=== PATIENT | male | born 1930 | race Caucasian/White ===

== ENCOUNTER 2022-01-08 20:23 | Inpatient (IN) ==
[2022-01-08] MEDS ORDERED: dexAMETHasone**PF** 10 MG/ML VIAL IV ONE (21:39)
[2022-01-08] MEDS ORDERED: ALBUT/IPRATROP 3MG/0.5MG NEB 3 ML VIAL NEB STA (21:41)
[2022-01-08 21:44] LABS: Hematocrit (blood only) 36.1 % (40.1-51.0); Hemoglobin 12.2 g/dl (14.0-18.0); Mean Corpuscular Hemoglobin 28.8 pg (25.0-34.0); Mean Corpuscular Hgb Conc 33.8 g/dL (32.0-36.0); Mean Corpuscular Volume 85.1 fL (80.0-100.0); RDW Coefficient of Variation 13.7 % (11.5-14.5); RDW Standard Deviation 42.4 fL (36.4-46.3); Red Blood Count 4.24 M/uL (4.63-6.08)
[2022-01-08 21:51] LABS: Mean Platelet Volume 13.1 fL (9.4-12.4); Platelet Count 170 K/uL (130-400)
[2022-01-08 22:18] LABS: Basophils # (auto) 0.02 K/uL (0-0.2); Basophils % (auto) 0.2 %; Dohle Bodies 1+; Echinocytes 1+; Immature Granulocytes # (auto) 0.07 K/uL (0.00-0.02); Immature Granulocytes % (auto) 0.5 %; Lymphocytes # (auto) 0.25 K/uL (1.2-3.4); Lymphocytes % (auto) 1.9 %; Monocytes # (auto) 0.72 K/uL (0.24-0.82); Monocytes % (auto) 5.5 %; Neutrophils # (auto) 11.94 K/uL (1.4-6.5); Neutrophils % (auto) 91.9 %
[2022-01-08 22:22] LABS: Albumin Globulin Ratio 1.2 (0.9-2); Albumin Level 3.7 gm/dl (3.4-5.0); BUN Creatinine Ratio 17.3 (10-20); Bilirubin,Total 0.8 mg/dl (0.2-1.0); Calcium 8.8 mg/dl (8.5-10.1); Est GFR (African American) 68.6 ml/min; Est GFR (Non-African American) 59.2 ml/min; Globulin 3.1 gm/dl (2.5-4.0); Magnesium 1.8 mg/dl (1.7-2.4); Potassium 4.4 mmol/L (3.5-5.1); Total Protein 6.8 gm/dl (6.0-8.3); Troponin I High Sensitivity 163.1 pg/ml (0-20)
[2022-01-08] MEDS ORDERED: FUROSEMIDE INJ 20 MG/2 ML VIAL IV ONE (22:59)
[2022-01-08] MEDS ORDERED: METOPROLOL TARTRATE 1 MG/ML VIAL IV STA (22:59)
[2022-01-08] MEDS ORDERED: DOXYCYCLINE HYCLATE 100 MG in DEXTROSE 5% 100 ML IV STA (23:08)
[2022-01-08 23:53] LABS: Partial Thromboplastin Time 27.5 Seconds (21.0-31.0)
[2022-01-08] MEDS: MAGNESIUM SULFATE / D5W 1 GM/100 ML BAG IV SCH (23:57)
[2022-01-09 00:07] LABS: Reticulocytes # 0.04 10^6/uL (0.02-0.10)
[2022-01-09] MEDS ORDERED: REMDESIVIR 200 MG in SODIUM CHLORIDE 0.9% 210 ML IV STA (00:22)
[2022-01-09] MEDS ORDERED: GLUCOSE 10 TAB/TUBE PO PRN (00:23)
[2022-01-09] MEDS ORDERED: CARBOHYDRATES FOR HYPOGLYCEMIA PO PRN (00:23)
[2022-01-09] MEDS ORDERED: DEXTROSE 50% 50 ML SYRINGE IV PRN (00:23)
[2022-01-09] MEDS ORDERED: LANTUS PER UNIT CHARGE SQ STA ×2 (00:23→03:00)
[2022-01-09] MEDS ORDERED: GLUCOSE 40% GEL 15 GM TUBE PO PRN (00:23)
[2022-01-09] MEDS ORDERED: GLUCAGON FOR INJ 1 MG VIAL SQ PRN (00:23)
--- NOTE | 2022-01-09 00:23 | History & Physical Report ---
Date of Service January 09, 2022 Assessment & Plan (1) Acute respiratory failure with hypoxia: Plan: Underlying pulmonary hypertension Multifactorial : Severe COVID-19 pneumonia, possible sepsis from superimposed bacterial infection with abnormal procalcitonin CHF, hx systolic dysfunction status post biventricular ICD Troponin elevation similar to above hx CAD status post angioplasty chronic LBBB A. fib status post PPM on Eliquis mild mitral regurgitation Hypertension, elevated secondary illness DM2 on oral medications, suboptimal control as of recent hemoglobin A1c of 9.1 last October 2021 prostate cancer status post surgery New onset anemia, patient denies overt bleeding symptoms past tobacco abuse PCU Supplemental O2 Baseline ABG BiPAP for now CS, Doxycycline Decadron and Remdesivir Pulmonary consult if without improvement Diuretic Rx Strict I/Os, daily weights, CHF education Follow troponin, TTE if with progression Basal bolus insulin, ISS BG goal 1 10-1 40, update hemoglobin A1c Anemia work-up, transfuse PRBC if hemoglobin less than 8 and or for symptomatic anemia DVT phylaxis. Eliquis Full code Total critical care time was 45 minutes. Attempted to contact patient's son (Mr. Kristofer Raymundo, contact #[phone]) over the phone to provide update on patient's condition and to discuss plan of care. No answer. History of Present Illness Chief Complaint: Shortness of breath, weakness Primary Care Provider: Denton Sears MD History obtained from patient and records. Medical history significant for chronic systolic heart failure (EF 30 to 34%, TTE 2020 status post ICD), CAD status post angioplasty, chronic LBBB, A. fib status post PPM on Eliquis, mild mitral regurgitation, pulmonary hypertension, hypertension, DM2 on oral medications, prostate cancer status post surgery, peripheral neuropathy, past tobacco abuse. Last week, patient noted fever chills, nasal drainage. Cold symptoms with congestion. Junky cough symptoms. No chest pain. Poor appetite. Patient completed COVID-19 vaccination. Patient seen at PCPs office 4 days ago. Chest x-ray showed right atelectasis. COVID-19 swab was positive. Patient prescribed Z-Charles. Worsening shortness of breath mostly on exertion and weakness at home. O2 sats 89 on room air upon EMS arrival. Patient denies chest pain or unusual fluid retention/leg swelling. Patient brought to the ER. Decadron and neb treatment administered at the ER. BiPAP later initiated. Medical History as above Surgical History : ICD, PPM Family History : COPD Personal/Social history : Past tobacco abuse, no EtOH intake, Allergies Allergy/AdvReac Type Severity Reaction Status Date / Time benoxinate Allergy Unknown listed in Verified 01/08/22 22:23 [facility] record simvastatin Allergy Unknown listed in Verified 01/08/22 22:23 [facility] record Home Medications Medication Instructions Recorded Confirmed Type apixaban 5 mg tablet (Eliquis) 5 mg PO BID 08/08/21 01/08/22 History benazepril 40 mg tablet 40 mg PO QAM 08/08/21 01/08/22 History calcium carbonate 500 mg calcium 500 mg PO QAM 08/08/21 01/08/22 History (1,250 mg) tablet clopidogrel 75 mg tablet (Plavix) 75 mg PO QAM 08/08/21 01/08/22 History diphenhydramine 25 1 tab PO TID PRN Itching 08/08/21 01/08/22 History mg-acetaminophen 500 mg tablet (Tylenol PM Extra Strength) dofetilide 500 mcg capsule 500 mcg PO Q12H 08/08/21 01/08/22 History (Tikosyn) fluticasone furoate 100 2 inh inhalation QAM 08/08/21 01/08/22 History mcg-vilanterol 25 mcg/dose inhalation powder (Breo Ellipta) furosemide 40 mg tablet 40 mg PO BID 08/08/21 01/08/22 History glimepiride 4 mg tablet 4 mg PO BID 08/08/21 01/08/22 History albuterol sulfate 90 mcg/actuation 2 puff inhalation Q6 PRN Shortness 01/08/22 01/08/22 History aerosol inhaler Of Breath Or Wheezing azithromycin 250 mg tablet 250 mg PO UD 01/08/22 01/08/22 History gabapentin 300 mg capsule 300 mg PO BID 01/08/22 01/08/22 History gabapentin 300 mg capsule 600 mg PO HS 01/08/22 01/08/22 History [id number] C-Mn 500 1 cap PO BID 01/08/22 01/08/22 History mg-400 mg capsule magnesium oxide 400 mg PO DAILY 01/08/22 01/08/22 History metformin 500 mg tablet,extended 1,000 mg PO BID 01/08/22 01/08/22 History release 24 hr metoprolol succinate 25 mg 12.5 mg PO AMHS 01/08/22 01/08/22 History tablet,extended release 24 hr multivitamin with minerals 1 tab PO DAILY 01/08/22 01/08/22 History (Multiple Vitamin-Minerals tablet) nitroglycerin 0.4 mg sublingual 0.4 mg sublingual UD PRN Chest Pain 01/08/22 01/08/22 History tablet vitamins A,C,F-pokf-pysoej 14,320 1 cap PO DAILY 01/08/22 01/08/22 History unit-226 mg-200 unit capsule vitamins B1 2.5 mg-B2 2.5 1 tab PO DAILY 01/08/22 01/08/22 History mg-niacin 5 mg-B12 100 mcg-protease tablet (B-Complex With B-12) Past Med/Surg History Medical History Acid reflux On occasion Asthma Does get frequent COVARRUBIAS Atrial fibrillation Dx Jan 2019 > Tikosyn/Eliquis/Plavix > no cardioversions > follows with Dr. Henson > EF is 30-35% per pt report CAD (coronary artery disease) S/p PCI to LAD, ramus intermedius, and RCA (2006) S/p PCI 2009 (unknown vessel) S/p old balloon angioplasty, unknown vessel (Jan 2019) Diabetes mellitus, type 2 Diastolic dysfunction Severe Heart attack HTN (hypertension) Hyperlipidemia Ischemic cardiomyopathy EF 30-34% Kidney stones Hx of LBBB (left bundle branch block) Chronic Neuropathy Hands and feet Prostate cancer Dx'ed several yrs ago > s/p prostatectomy, no radiation Pulmonary HTN Moderate per records Urinary incontinence S/p AMS 800 Urinary Control System implantation in 2008 Surgical History History of appendectomy History of cardiac cath x4 stents > approx 8-10 yrs ago per pt History of cataract surgery bilat History of colonoscopy History of heart artery stent x4 > approx 8-10 yrs ago per pt History of lithotripsy History of partial nephrectomy Per records 1985 History of prostatectomy History of tonsillectomy History of tooth extraction Hx of inguinal hernia repair x2 Status post implantation of artificial urinary sphincter Family History Mother Diabetes Brother Diabetes Social History Smoking Status: Former smoker Second Hand Exposure: No; Hx Alcohol Use: No Hx Substance Use: No Preferred Language: Kyrgyz Communication Ability: Effective Vegetable I Farmworker Required: No Beliefs That Will Affect Care: None Current Living Situation: Alone Feels Safe at Home: Yes Safety Concerns: Feels Safe At This Time Assistive Devices: Glasses Review of Systems Review of Systems: As per HPI, all other systems reviewed and negative Physical Exam Physical Exam: GENERAL: Slightly uncomfortable, minimal respiratory distress SKIN: Pallor, warm HEENT: Pale palpebral conjunctivae, no ptosis, dry buccal mucosa, BiPAP in place NECK : Supple, no tenderness CHEST : Decreased breath sounds, occasional expiratory wheezes no tenderness HEART : RRR, no obvious murmurs ABDOMEN: Some distention, nontender EXTREMITIES : Minimal LE swelling, no LE tenderness, no other conspicuous deformities noted NEUROLOGIC : Coherent, no facial asymmetry, mild hearing impairment, gait and stance not assessed Results & Data Results & Data ([facility] [place]) Vital Signs (Past 12 Hours) Vital Signs Temp Pulse Pulse Resp BP BP Pulse Ox 01/08/22 21:15 50 L 23 94 01/08/22 22:00 113 H 24 94 01/08/22 20:35 93 01/08/22 20:34 113 H 28 H 159/114 H 93 01/08/22 20:27 37 C 113 H 28 H 159/114 H 85 L 01/08/22 20:27 O2 Del Method O2 Flow Rate FiO2 01/08/22 21:15 40 01/08/22 22:00 BiPAP 01/08/22 20:35 Nasal Cannula 4 01/08/22 20:34 Nasal Cannula 4 01/08/22 20:27 Room Air 01/08/22 20:27 Nasal Cannula Laboratory Results Laboratory Results WBC 13.00 K/ul (4.8-10.8) H 01/08/22 20:40 RBC 4.24 M/uL (4.63-6.08) L 01/08/22 20:40 Hgb 12.2 g/dl (14.0-18.0) L 01/08/22 20:40 Hct 36.1 % (40.1-51.0) L 01/08/22 20:40 MCV 85.1 fL (80.0-100.0) 01/08/22 20:40 MCH 28.8 pg (25.0-34.0) 01/08/22 20:40 MCHC 33.8 g/dL (32.0-36.0) 01/08/22 20:40 RDW Std Deviation 42.4 fL (36.4-46.3) 01/08/22 20:40 RDW Coeff of Sarika 13.7 % (11.5-14.5) 01/08/22 20:40 Plt Count 170 K/uL (130-400) 01/08/22 20:40 MPV 13.1 fL (9.4-12.4) H 01/08/22 20:40 Immature Gran % (Auto) 0.5 % 01/08/22 20:40 Neut % (Auto) 91.9 % 01/08/22 20:40 Lymph % (Auto) 1.9 % 01/08/22 20:40 Coles % (Auto) 5.5 % 01/08/22 20:40 Eos % (Auto) 0.0 % 01/08/22 20:40 Baso % (Auto) 0.2 % 01/08/22 20:40 Reticulocyte % (Auto) 1.0 % (0.5-2.0) 01/08/22 23:50 Neut # (Auto) 11.94 K/uL (1.4-6.5) H 01/08/22 20:40 Lymph # (Auto) 0.25 K/uL (1.2-3.4) L 01/08/22 20:40 Coles # (Auto) 0.72 K/uL (0.24-0.82) 01/08/22 20:40 Eos # (Auto) 0.00 K/uL (0-0.50) 01/08/22 20:40 Baso # (Auto) 0.02 K/uL (0-0.2) 01/08/22 20:40 Reticulocyte # 0.04 10^6/uL (0.02-0.10) 01/08/22 23:50 Immature Gran # (Auto) 0.07 K/uL (0.00-0.02) H 01/08/22 20:40 Dohle Bodies 1+ 01/08/22 20:40 Echinocytes 1+ 01/08/22 20:40 APTT 27.5 Seconds (21.0-31.0) 01/08/22 20:40 PTT Ratio 1.0 01/08/22 20:40 Sodium 128 mmol/L (136-145) L 01/08/22 20:40 Potassium 4.4 mmol/L (3.5-5.1) 01/08/22 20:40 Chloride 93 mmol/L (98-107) L 01/08/22 20:40 Carbon Dioxide 23 mmol/L (21-32) 01/08/22 20:40 Anion Gap 12 (3-11) H 01/08/22 20:40 BUN 19 mg/dl (6-23) 01/08/22 20:40 Creatinine 1.10 mg/dl (0.6-1.4) 01/08/22 20:40 Est Cr Clr Drug Dosing 44.0 ml/min 01/08/22 20:40 Est GFR ( Amer) 68.6 ml/min 01/08/22 20:40 Est GFR (Non-Af Amer) 59.2 ml/min 01/08/22 20:40 BUN/Creatinine Ratio 17.3 (10-20) 01/08/22 20:40 Glucose 336 mg/dl (70-99(Fasting)) H* 01/08/22 20:40 Calcium 8.8 mg/dl (8.5-10.1) 01/08/22 20:40 Phosphorus 2.0 mg/dl (2.5-4.9) L 01/08/22 20:40 Magnesium 1.8 mg/dl (1.7-2.4) 01/08/22 20:40 Total Bilirubin 0.8 mg/dl (0.2-1.0) 01/08/22 20:40 AST 43 U/L (13-39) H 01/08/22 20:40 ALT 34 U/L (7-52) 01/08/22 20:40 Alkaline Phosphatase 71 U/L (34-104) 01/08/22 20:40 Troponin I High Sens 163.1 pg/ml (0-20) H* 01/08/22 20:40 B-Natriuretic Peptide 1609 pg/ml (0-100) H 01/08/22 20:40 Total Protein 6.8 gm/dl (6.0-8.3) 01/08/22 20:40 Albumin 3.7 gm/dl (3.4-5.0) 01/08/22 20:40 Globulin 3.1 gm/dl (2.5-4.0) 01/08/22 20:40 Albumin/Globulin Ratio 1.2 (0.9-2) 01/08/22 20:40 Lipase 18 U/L (11-82) 01/08/22 20:40 Procalcitonin 9.38 ng/ml (0-0.5) H 01/08/22 20:40 SARS-CoV-2, RNA, NAAT POSITIVE (NEGATIVE) A* 01/08/22 21:30 Diagnostic Findings Chest x-ray as per my interpretation elevated right hemidiaphragm, cardiomegaly, minimal congestion EKG as per my interpretation : Rate 105, sinus tachycardia, RAD, anteroseptal infarct, T wave abnormalities inferior leads
[2022-01-09] MEDS ORDERED: POTASSIUM PHOS 3 MMOL/1 ML INFUSION IV STA (00:25)
[2022-01-09 00:41] LABS: iSTAT Arterial Blood Gas HCO3 22 meg/L (19-24); iSTAT Arterial Blood Gas pCO2 37 mmHg (35-46); iSTAT Arterial Blood Gas pH 7.39 (7.35-7.45); iSTAT Arterial Blood Gas pO2 113 mmHg (80-95); iSTAT Carbon Dioxide 23 mmol/L (24-31)
[2022-01-09 00:51] LABS: Ferritin 300.4 ng/ml (8-388); Iron < 10 mcg/dl (35-175); Transferrin 193 mg/dl (200-360); Troponin I High Sensitivity 427.3 pg/ml (0-20)
[2022-01-09] MEDS ORDERED: POTASSIUM PHOSPHATE 30 MMOL in SODIUM CHLORIDE 0.9% 500 ML IV ONE (01:00)
[2022-01-09 01:22] LABS: Base Excess ABG -1.4 mEq/L (-9-1.8); HCO3 ABG 23 mmol/L (19-24); Oxygen Saturation ABG 99.2 % (90-95); PCO2 ABG 36 mmHg (35-46); PO2 ABG 93 mmHg (80-95); pH ABG 7.41 (7.35-7.45)
[2022-01-09 01:24] LABS: Allen Test Pos (Pos)
[2022-01-09 01:31] LABS: Vitamin B12 > 1500 pg/ml (180-914)
--- NOTE | 2022-01-09 01:54 | Emergency Department Note ---
Impression & Plan Acute respiratory failure with hypoxia, Pneumonia due to COVID-19 virus, Elevated troponin ED Provider Note NAME: MARCO LA AGE: 89 SEX: M ARRIVES VIA: Ambulance INFORMANT: Patient, ED PROVIDER(S): Denton Smallwood MD CHIEF COMPLAINT: Covid-19, Shortness of breath. PLAN: Disposition: Admit MEDICAL DECISION MAKING: The patient is a pleasant 89-year-old gentleman with a past medical history of CAD, systolic and diastolic heart failure, left bundle branch block, paroxysmal atrial fibrillation on Eliquis who presents to the emergency department via EMS and then accompanied by his son for evaluation of worsening shortness of breath over the past week with dry cough that worsened and was diagnosed with COVID-19 with test performed on Saturday and was informed today. The patient is not on oxygen at home. He does not feel as he has retained fluid necessarily. He reports feverishness. He denies nausea or vomiting or diarrhea. He is vaccinat ed for COVID-19. On arrival the patient is uncomfortable and in moderate respiratory distress with O2 saturation 85% on room air and tachypnea with labored breathing in the upper 20s-30s. Heart rate in the 110s and blood pressure 150s/110s. He has diminished breath sounds at the bases with intermittent wheeze and rhonchi. Labored breathing. 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 EKG with left bundle branch block in the setting of history of same, no sgarb saima criteria. Chest x-ray with bilateral airspace opacities right greater than left per my preliminary review. WBC 13K nonspecific. H/H 12.2/36.1 without recent values for comparison. Platelets within normal limits. Chemistry without metabolic acidosis. Sodium 128 but corrects to 132-134 with glucose of 336. AST 43, nonspecific. LFTs otherwise unremarkable. Initial high-sensitivity troponin 163, nonspecific in the setting of the patient's respiratory failure. BNP 1600 without recent va lues for comparison and in setting of the patient's known systolic heart failure. Lipase within normal limits. COVID-19 RNA, THIAGO test was positive. Given the patient's acute hypoxic respiratory failure in the setting of COVID-19 pneumonia we will proceed with admission. Patient and son at the bedside agree with this plan. Case was discussed with Dr. [facility] who will evaluate the patient for admission. Procalcitonin elevated. Further treatment per admitting team. Triage Nursing notes reviewed and agree them. Prior medical records reviewed Vital Signs: reviewed and remarkable for tachycardia, hypoxia, hypertension. Differential diagnosis: Reactive airway disease, pneumonia, pneumothorax, COPD, CHF, infections, cardiac ischemia, pulmonary embolism, musculoskeletal, gastrointestinal, as well as other pathologies. ER treatment provided: See below. Diagnostics interpreted by me: ECG: Sinus tachycardia, 105 bpm, no ectopy, T wave abnormality, LBBB, no sgarbossa criteria, QTC 452, QRS 124. Cardiac Monitoring: An order for continuous cardiac monitoring was placed and demonstrated Sinus tachycardia, 105 bpm, no ectopy. Laboratory studies: See below Imaging studies: See below Consultation(s): Case was discussed with Dr. [facility] who will evaluate the patient for admission. HPI: The patient is a pleasant 89-year-old gentleman with a past medical history of CAD, systolic and diastolic heart failure, left bundle branch block, paroxysmal atrial fibrillation on Eliquis who presents to the emergency department via EMS and then accompanied by his son for evaluation of worsening shortness of breath over the past week with dry cough that worsened and was diagnosed with COVID-19 with test performed on Saturday and was informed today. The patient is not on oxygen at home. He does not feel as he has retained fluid necessarily. He reports feverishness. He denies nausea or vomiting or diarrhea. He is vaccinated for COVID-19. ROS: See above HPI for pertinent positives & negatives. A total of 10 systems reviewed and were otherwise negative. VITALS:See Below PHYSICAL EXAMINATION: GENERAL: Awake, alert, ill-appearing, in moderate respiratory distress HENT: Normocephalic, atraumatic. Oropharynx unremarkable. EYES: Normal conjunctiva. Sclera non-icteric. NECK: Supple. No nuchal rigidity. FROM. No JVD. RESPIRATORY: Diminished breath sounds at the bases with intermittent wheeze and rhonchi. Increased WOB. CARDIAC: Regular rate, normal rhythm. Extremities warm and well perfused. Pulses equal. ABDOMEN: Soft, non-distended. No tenderness to palpation. No rebound or guarding. No masses. RECTAL: Deferred. MUSCULOSKELETAL: Chest examination reveals no tenderness. The back is s ymmetrical on inspection without obvious abnormality. There is no CVA tenderness to palpation. No joint edema. LOWER EXTREMITIES: Calves are equal size bilaterally and non-tender. Mild BLE edema. No discoloration. NEURO: Normal sensorium. No sensory or motor deficits noted. SKIN: No rash or jaundice noted. ED COURSE: Critical Care: I have personally spent greater than 75 minutes of critical care time in the direct management of this patient. This includes bedside care, interpretation of diagnostic studies, and testing, discussion with consultants, patient, and family members, and other required patient management activities. This 75 minutes is in excess of all separately billable procedures. Denton Smallwood MD Past Med/Surg History Medical History Acid reflux On occasion Asthma Does get frequent COVARRUBIAS Atrial fibrillation Dx Jan 2019 > Tikosyn/Eliquis/Plavix > no cardioversions > follows with Dr. Henson > EF is 30-35% per pt report CAD (coronary artery disease) S/p PCI to LAD, ramus intermedius, and RCA (2006) S/p PCI 2009 (unknown vessel) S/p old balloon angioplasty, unknown vessel (Jan 2019) Diabetes mellitus, type 2 Diastolic dysfunction Severe Heart attack HTN (hypertension) Hyperlipidemia Ischemic cardiomyopathy EF 30-34% Kidney stones Hx of LBBB (left bundle branch block) Chronic Neuropathy Hands and feet Prostate cancer Dx'ed several yrs ago > s/p prostatectomy, no radiation Pulmonary HTN Moderate per records Urinary incontinence S/p AMS 800 Urinary Control System implantation in 2008 Surgical History History of appendectomy History of cardiac cath x4 stents > approx 8-10 yrs ago per pt History of cataract surgery bilat History of colonoscopy History of heart artery stent x4 > approx 8-10 yrs ago per pt History of lithotripsy History of partial nephrectomy Per records 1985 History of prostatectomy History of tonsillectomy History of tooth extraction Hx of inguinal hernia repair x2 Status post implantation of artificial urinary sphincter Family History Mother Diabetes Brother Diabetes Social History Smoking Status: Never smoker Second Hand Exposure: No; Hx Alcohol Use: No Hx Substance Use: No Preferred Language: Moroccan Communication Ability: Effective Wastewater Analyst Required: No Beliefs That Will Affect Care: None Current Living Situation: Alone Feels Safe at Home: Yes Assistive Devices: Glasses Allergies Allergies Allergy/AdvReac Type Severity Reaction Status Date / Time benoxinate Allergy Unknown listed in Verified 01/08/22 22:23 [facility] simvastatin Allergy Unknown listed in Verified 01/08/22 22:23 [facility] Home Meds Home Medications Medication Instructions Recorded Confirmed apixaban 5 mg tablet (Eliquis) 5 mg PO BID 08/08/21 01/08/22 benazepril 40 mg tablet 40 mg PO QAM 08/08/21 01/08/22 calcium carbonate 500 mg calcium 500 mg PO QAM 08/08/21 01/08/22 (1,250 mg) tablet clopidogrel 75 mg tablet (Plavix) 75 mg PO QAM 08/08/21 01/08/22 diphenhydramine 25 1 tab PO TID PRN Itching 08/08/21 01/08/22 mg-acetaminophen 500 mg tablet (Tylenol PM Extra Strength) dofetilide 500 mcg capsule 500 mcg PO Q12H 08/08/21 01/08/22 (Tikosyn) fluticasone furoate 100 2 inh inhalation QAM 08/08/21 01/08/22 mcg-vilanterol 25 mcg/dose inhalation powder (Breo Ellipta) furosemide 40 mg tablet 40 mg PO BID 08/08/21 01/08/22 glimepiride 4 mg tablet 4 mg PO BID 08/08/21 01/08/22 albuterol sulfate 90 mcg/actuation 2 puff inhalation Q6 PRN Shortness 01/08/22 01/08/22 aerosol inhaler Of Breath Or Wheezing azithromycin 250 mg tablet 250 mg PO UD 01/08/22 01/08/22 gabapentin 300 mg capsule 300 mg PO BID 01/08/22 01/08/22 gabapentin 300 mg capsule 600 mg PO HS 01/08/22 01/08/22 imizoocqejt-vlsjtxotj-fmf C-Mn 500 1 cap PO BID 01/08/22 01/08/22 mg-400 mg capsule magnesium oxide 400 mg PO DAILY 01/08/22 01/08/22 metformin 500 mg tablet,extended 1,000 mg PO BID 01/08/22 01/08/22 release 24 hr metoprolol succinate 25 mg 12.5 mg PO AMHS 01/08/22 01/08/22 tablet,extended release 24 hr multivitamin with minerals 1 tab PO DAILY 01/08/22 01/08/22 (Multiple Vitamin-Minerals tablet) nitroglycerin 0.4 mg sublingual 0.4 mg sublingual UD PRN Chest Pain 01/08/22 01/08/22 tablet vitamins A,C,U-ulnr-ahpomd 14,320 1 cap PO DAILY 01/08/22 01/08/22 unit-226 mg-200 unit capsule vitamins B1 2.5 mg-B2 2.5 1 tab PO DAILY 01/08/22 01/08/22 mg-niacin 5 mg-B12 100 mcg-protease tablet (B-Complex With B-12) Results & Data (ED) Vital Signs Vital Signs - 24 hr 01/08/22 20:27 01/08/22 20:27 01/08/22 20:34 Temperature 37 C Temperature Source Oral Pulse Rate 113 H Pulse Rate [Finger] 113 H Pulse Rhythm Respiratory Rate 28 H 28 H Respiratory Effort / Characteristics Non-Labored Short of Breath Non-Labored Spontaneous Short of Breath Non-Labored Spontaneous Short of Breath Respiratory Depth Deep Respiratory Pattern Regular Blood Pressure 159/114 H Blood Pressure [Right Arm] 159/114 H Blood Pressure Mean 129 Blood Pressure Mean [Right Arm] 129 Blood Pressure Position Sitting Blood Pressure Position [Right Arm] Sitting Pulse Oximetry 85 L 93 Oxygen Delivery Method Nasal Cannula Room Air Nasal Cannula Oxygen Flow Rate 4 Fraction of Inspired Oxygen Sepsis Recent Fever Within 48 Hours No Sepsis New/Unexplained Change in Mental Status No Sepsis Action Taken by Nursing No Action Required 01/08/22 20:35 01/08/22 22:00 01/08/22 21:15 Temperature Temperature Source Pulse Rate 113 H 50 L Pulse Rate [Finger] Pulse Rhythm Regular Respiratory Rate 24 23 Respiratory Effort / Characteristics Spontaneous Accessory Muscle Use Respiratory Depth Respiratory Pattern Tachypnea Blood Pressure Blood Pressure [Right Arm] Blood Pressure Mean Blood Pressure Mean [Right Arm] Blood Pressure Position Blood Pressure Position [Right Arm] Pulse Oximetry 93 94 94 Oxygen Delivery Method Nasal Cannula BiPAP Oxygen Flow Rate 4 Fraction of Inspired Oxygen 40 Sepsis Recent Fever Within 48 Hours Sepsis New/Unexplained Change in Mental Status Sepsis Action Taken by Nursing Laboratory Data Attestation: I reviewed the patient's lab results. Result diagrams: 01/08/22 20:40 01/08/22 20:40 Lab Results 01/08/22 01/08/22 01/08/22 Range/Units 20:40 20:40 20:40 WBC 13.00 H (4.8-10.8) K/ul RBC 4.24 L (4.63-6.08) M/uL Hgb 12.2 L (14.0-18.0) g/dl Hct 36.1 L (40.1-51.0) % MCV 85.1 (80.0-100.0) fL MCH 28.8 (25.0-34.0) pg MCHC 33.8 (32.0-36.0) g/dL RDW Std Deviation 42.4 (36.4-46.3) fL RDW Coeff of Sarika 13.7 (11.5-14.5) % Plt Count 170 (130-400) K/uL MPV 13.1 H (9.4-12.4) fL Immature Gran % (Auto) 0.5 % Neut % (Auto) 91.9 % Lymph % (Auto) 1.9 % [place] % (Auto) 5.5 % Eos % (Auto) 0.0 % Baso % (Auto) 0.2 % Reticulocyte % (Auto) (0.5-2.0) % Neut # (Auto) 11.94 H (1.4-6.5) K/uL Lymph # (Auto) 0.25 L (1.2-3.4) K/uL [place] # (Auto) 0.72 (0.24-0.82) K/uL Eos # (Auto) 0.00 (0-0.50) K/uL Baso # (Auto) 0.02 (0-0.2) K/uL Reticulocyte # (0.02-0.10) 10^6/uL Immature Gran # (Auto) 0.07 H (0.00-0.02) K/uL Dohle Bodies 1+ Echinocytes 1+ APTT (21.0-31.0) Seconds PTT Ratio POC pH (7.35-7.45) POC pCO2 (35-46) mmHg POC pO2 (80-95) mmHg POC HCO3 (19-24) kim/L POC Total CO2 (24-31) mmol/L POC Base Excess (-9-1.8) kim/L POC ABG O2 Sat (90-95) % Sodium 128 L (136-145) mmol/L Potassium 4.4 (3.5-5.1) mmol/L Chloride 93 L (98-107) mmol/L Carbon Dioxide 23 (21-32) mmol/L Anion Gap 12 H (3-11) BUN 19 (6-23) mg/dl Creatinine 1.10 (0.6-1.4) mg/dl Est Cr Clr Drug Dosing 44.0 ml/min Est GFR ( Amer) 68.6 ml/min Est GFR (Non-Af Amer) 59.2 ml/min BUN/Creatinine Ratio 17.3 (10-20) Glucose 336 H* (70-99(Fasting)) mg/dl Osmolality (280-300) mOsm/kg Lactate (0.4-2.0) mmol/L Calcium 8.8 (8.5-10.1) mg/dl Phosphorus 2.0 L (2.5-4.9) mg/dl Magnesium 1.8 (1.7-2.4) mg/dl Iron (35-175) mcg/dl Transferrin (200-360) mg/dl Ferritin (8-388) ng/ml Total Bilirubin 0.8 (0.2-1.0) mg/dl AST 43 H (13-39) U/L ALT 34 (7-52) U/L Alkaline Phosphatase 71 (34-104) U/L Troponin I High Sens 163.1 H* (0-20) pg/ml B-Natriuretic Peptide 1609 H (0-100) pg/ml Total Protein 6.8 (6.0-8.3) gm/dl Albumin 3.7 (3.4-5.0) gm/dl Globulin 3.1 (2.5-4.0) gm/dl Albumin/Globulin Ratio 1.2 (0.9-2) Lipase 18 (11-82) U/L Vitamin B12 (180-914) pg/ml Folate (>5.38) ng/ml Procalcitonin (0-0.5) ng/ml TSH (0.300-4.500) uIu/ml SARS-CoV-2, RNA, NAAT (NEGATIVE) Blood Type Antibody Screen 01/08/22 01/08/22 01/08/22 Range/Units 20:40 20:40 20:40 WBC (4.8-10.8) K/ul RBC (4.63-6.08) M/uL Hgb (14.0-18.0) g/dl Hct (40.1-51.0) % MCV (80.0-100.0) fL MCH (25.0-34.0) pg MCHC (32.0-36.0) g/dL RDW Std Deviation (36.4-46.3) fL RDW Coeff of Sarika (11.5-14.5) % Plt Count (130-400) K/uL MPV (9.4-12.4) fL Immature Gran % (Auto) % Neut % (Auto) % Lymph % (Auto) % [place] % (Auto) % Eos % (Auto) % Baso % (Auto) % Reticulocyte % (Auto) (0.5-2.0) % Neut # (Auto) (1.4-6.5) K/uL Lymph # (Auto) (1.2-3.4) K/uL [place] # (Auto) (0.24-0.82) K/uL Eos # (Auto) (0-0.50) K/uL Baso # (Auto) (0-0.2) K/uL Reticulocyte # (0.02-0.10) 10^6/uL Immature Gran # (Auto) (0.00-0.02) K/uL Dohle Bodies Echinocytes APTT (21.0-31.0) Seconds PTT Ratio POC pH (7.35-7.45) POC pCO2 (35-46) mmHg POC pO2 (80-95) mmHg POC HCO3 (19-24) kim/L POC Total CO2 (24-31) mmol/L POC Base Excess (-9-1.8) kim/L POC ABG O2 Sat (90-95) % Sodium (136-145) mmol/L Potassium (3.5-5.1) mmol/L Chloride (98-107) mmol/L Carbon Dioxide (21-32) mmol/L Anion Gap (3-11) BUN (6-23) mg/dl Creatinine (0.6-1.4) mg/dl Est Cr Clr Drug Dosing ml/min Est GFR ( Amer) ml/min Est GFR (Non-Af Amer) ml/min BUN/Creatinine Ratio (10-20) Glucose (70-99(Fasting)) mg/dl Osmolality 286 (280-300) mOsm/kg Lactate (0.4-2.0) mmol/L Calcium (8.5-10.1) mg/dl Phosphorus (2.5-4.9) mg/dl Magnesium (1.7-2.4) mg/dl Iron (35-175) mcg/dl Transferrin (200-360) mg/dl Ferritin (8-388) ng/ml Total Bilirubin (0.2-1.0) mg/dl AST (13-39) U/L ALT (7-52) U/L Alkaline Phosphatase (34-104) U/L Troponin I High Sens (0-20) pg/ml B-Natriuretic Peptide (0-100) pg/ml Total Protein (6.0-8.3) gm/dl Albumin (3.4-5.0) gm/dl Globulin (2.5-4.0) gm/dl Albumin/Globulin Ratio (0.9-2) Lipase (11-82) U/L Vitamin B12 (180-914) pg/ml Folate (>5.38) ng/ml Procalcitonin 9.38 H (0-0.5) ng/ml TSH 1.450 (0.300-4.500) uIu/ml SARS-CoV-2, RNA, NAAT (NEGATIVE) Blood Type Antibody Screen 01/08/22 01/08/22 01/08/22 Range/Units 20:40 20:40 21:30 WBC (4.8-10.8) K/ul RBC (4.63-6.08) M/uL Hgb (14.0-18.0) g/dl Hct (40.1-51.0) % MCV (80.0-100.0) fL MCH (25.0-34.0) pg MCHC (32.0-36.0) g/dL RDW Std Deviation (36.4-46.3) fL RDW Coeff of Sarika (11.5-14.5) % Plt Count (130-400) K/uL MPV (9.4-12.4) fL Immature Gran % (Auto) % Neut % (Auto) % Lymph % (Auto) % [place] % (Auto) % Eos % (Auto) % Baso % (Auto) % Reticulocyte % (Auto) (0.5-2.0) % Neut # (Auto) (1.4-6.5) K/uL Lymph # (Auto) (1.2-3.4) K/uL [place] # (Auto) (0.24-0.82) K/uL Eos # (Auto) (0-0.50) K/uL Baso # (Auto) (0-0.2) K/uL Reticulocyte # (0.02-0.10) 10^6/uL Immature Gran # (Auto) (0.00-0.02) K/uL Dohle Bodies Echinocytes APTT 27.5 (21.0-31.0) Seconds PTT Ratio 1.0 POC pH (7.35-7.45) POC pCO2 (35-46) mmHg POC pO2 (80-95) mmHg POC HCO3 (19-24) kim/L POC Total CO2 (24-31) mmol/L POC Base Excess (-9-1.8) kim/L POC ABG O2 Sat (90-95) % Sodium (136-145) mmol/L Potassium (3.5-5.1) mmol/L Chloride (98-107) mmol/L Carbon Dioxide (21-32) mmol/L Anion Gap (3-11) BUN (6-23) mg/dl Creatinine (0.6-1.4) mg/dl Est Cr Clr Drug Dosing ml/min Est GFR ( Amer) ml/min Est GFR (Non-Af Amer) ml/min BUN/Creatinine Ratio (10-20) Glucose (70-99(Fasting)) mg/dl Osmolality (280-300) mOsm/kg Lactate (0.4-2.0) mmol/L Calcium (8.5-10.1) mg/dl Phosphorus (2.5-4.9) mg/dl Magnesium (1.7-2.4) mg/dl Iron (35-175) mcg/dl Transferrin (200-360) mg/dl Ferritin (8-388) ng/ml Total Bilirubin (0.2-1.0) mg/dl AST (13-39) U/L ALT (7-52) U/L Alkaline Phosphatase (34-104) U/L Troponin I High Sens (0-20) pg/ml B-Natriuretic Peptide (0-100) pg/ml Total Protein (6.0-8.3) gm/dl Albumin (3.4-5.0) gm/dl Globulin (2.5-4.0) gm/dl Albumin/Globulin Ratio (0.9-2) Lipase (11-82) U/L Vitamin B12 > 1500 H (180-914) pg/ml Folate > 22.30 (>5.38) ng/ml Procalcitonin (0-0.5) ng/ml TSH (0.300-4.500) uIu/ml SARS-CoV-2, RNA, NAAT POSITIVE A* (NEGATIVE) Blood Type Antibody Screen 01/08/22 01/08/22 01/08/22 Range/Units 23:50 23:50 23:50 WBC (4.8-10.8) K/ul RBC (4.63-6.08) M/uL Hgb (14.0-18.0) g/dl Hct (40.1-51.0) % MCV (80.0-100.0) fL MCH (25.0-34.0) pg MCHC (32.0-36.0) g/dL RDW Std Deviation (36.4-46.3) fL RDW Coeff of Sarika (11.5-14.5) % Plt Count (130-400) K/uL MPV (9.4-12.4) fL Immature Gran % (Auto) % Neut % (Auto) % Lymph % (Auto) % [place] % (Auto) % Eos % (Auto) % Baso % (Auto) % Reticulocyte % (Auto) (0.5-2.0) % Neut # (Auto) (1.4-6.5) K/uL Lymph # (Auto) (1.2-3.4) K/uL [place] # (Auto) (0.24-0.82) K/uL Eos # (Auto) (0-0.50) K/uL Baso # (Auto) (0-0.2) K/uL Reticulocyte # (0.02-0.10) 10^6/uL Immature Gran # (Auto) (0.00-0.02) K/uL Dohle Bodies Echinocytes APTT (21.0-31.0) Seconds PTT Ratio POC pH (7.35-7.45) POC pCO2 (35-46) mmHg POC pO2 (80-95) mmHg POC HCO3 (19-24) kim/L POC Total CO2 (24-31) mmol/L POC Base Excess (-9-1.8) kim/L POC ABG O2 Sat (90-95) % Sodium (136-145) mmol/L Potassium (3.5-5.1) mmol/L Chloride (98-107) mmol/L Carbon Dioxide (21-32) mmol/L Anion Gap (3-11) BUN (6-23) mg/dl Creatinine (0.6-1.4) mg/dl Est Cr Clr Drug Dosing ml/min Est GFR ( Amer) ml/min Est GFR (Non-Af Amer) ml/min BUN/Creatinine Ratio (10-20) Glucose (70-99(Fasting)) mg/dl Osmolality (280-300) mOsm/kg Lactate 1.4 (0.4-2.0) mmol/L Calcium (8.5-10.1) mg/dl Phosphorus (2.5-4.9) mg/dl Magnesium (1.7-2.4) mg/dl Iron < 10 L (35-175) mcg/dl Transferrin 193 L (200-360) mg/dl Ferritin 300.4 (8-388) ng/ml Total Bilirubin (0.2-1.0) mg/dl AST (13-39) U/L ALT (7-52) U/L Alkaline Phosphatase (34-104) U/L Troponin I High Sens 427.3 H* D (0-20) pg/ml B-Natriuretic Peptide (0-100) pg/ml Total Protein (6.0-8.3) gm/dl Albumin (3.4-5.0) gm/dl Globulin (2.5-4.0) gm/dl Albumin/Globulin Ratio (0.9-2) Lipase (11-82) U/L Vitamin B12 (180-914) pg/ml Folate (>5.38) ng/ml Procalcitonin (0-0.5) ng/ml TSH (0.300-4.500) uIu/ml SARS-CoV-2, RNA, NAAT (NEGATIVE) Blood Type A Positive Antibody Screen NEGATIVE 01/08/22 01/09/22 Range/Units 23:50 00:16 WBC (4.8-10.8) K/ul RBC (4.63-6.08) M/uL Hgb (14.0-18.0) g/dl Hct (40.1-51.0) % MCV (80.0-100.0) fL MCH (25.0-34.0) pg MCHC (32.0-36.0) g/dL RDW Std Deviation (36.4-46.3) fL RDW Coeff of Sarika (11.5-14.5) % Plt Count (130-400) K/uL MPV (9.4-12.4) fL Immature Gran % (Auto) % Neut % (Auto) % Lymph % (Auto) % [place] % (Auto) % Eos % (Auto) % Baso % (Auto) % Reticulocyte % (Auto) 1.0 (0.5-2.0) % Neut # (Auto) (1.4-6.5) K/uL Lymph # (Auto) (1.2-3.4) K/uL [place] # (Auto) (0.24-0.82) K/uL Eos # (Auto) (0-0.50) K/uL Baso # (Auto) (0-0.2) K/uL Reticulocyte # 0.04 (0.02-0.10) 10^6/uL Immature Gran # (Auto) (0.00-0.02) K/uL Dohle Bodies Echinocytes APTT (21.0-31.0) Seconds PTT Ratio POC pH 7.39 (7.35-7.45) POC pCO2 37 (35-46) mmHg POC pO2 113 H (80-95) mmHg POC HCO3 22 (19-24) kim/L POC Total CO2 23 L (24-31) mmol/L POC Base Excess -3.0 (-9-1.8) kim/L POC ABG O2 Sat 98.0 H (90-95) % Sodium (136-145) mmol/L Potassium (3.5-5.1) mmol/L Chloride (98-107) mmol/L Carbon Dioxide (21-32) mmol/L Anion Gap (3-11) BUN (6-23) mg/dl Creatinine (0.6-1.4) mg/dl Est Cr Clr Drug Dosing ml/min Est GFR ( Amer) ml/min Est GFR (Non-Af Amer) ml/min BUN/Creatinine Ratio (10-20) Glucose (70-99(Fasting)) mg/dl Osmolality (280-300) mOsm/kg Lactate (0.4-2.0) mmol/L Calcium (8.5-10.1) mg/dl Phosphorus (2.5-4.9) mg/dl Magnesium (1.7-2.4) mg/dl Iron (35-175) mcg/dl Transferrin (200-360) mg/dl Ferritin (8-388) ng/ml Total Bilirubin (0.2-1.0) mg/dl AST (13-39) U/L ALT (7-52) U/L Alkaline Phosphatase (34-104) U/L Troponin I High Sens (0-20) pg/ml B-Natriuretic Peptide (0-100) pg/ml Total Protein (6.0-8.3) gm/dl Albumin (3.4-5.0) gm/dl Globulin (2.5-4.0) gm/dl Albumin/Globulin Ratio (0.9-2) Lipase (11-82) U/L Vitamin B12 (180-914) pg/ml Folate (>5.38) ng/ml Procalcitonin (0-0.5) ng/ml TSH (0.300-4.500) uIu/ml SARS-CoV-2, RNA, NAAT (NEGATIVE) Blood Type Antibody Screen Administered Medications Apixaban (Apixaban 5 Mg Tablet) 5 mg PO BID [facility] Stop: 02/08/22 02:42 Last Admin: 01/09/22 04:53 Dose: 5 mg Documented By: BASILIO Potassium Phosphate 30 mmol/ (Sodium Chloride) 510 mls @ 100 mls/hr IV ONE ONE Stop: 01/09/22 06:05 Last Admin: 01/09/22 04:02 Dose: 100 mls/hr Documented By: BASILIO Insulin Aspart (Insulin Aspart Per Unit) 0 units SC ACHS CHRIS Stop: 02/08/22 00:24 Last Admin: 01/09/22 02:48 Dose: 10 units Documented By: BASILIO Co-signed By: CC Discontinued Medications Albuterol (Albut/Ipratrop 3mg/0.5mg Neb 3 Ml Vial) 3 ml NEB NOW STA; Protocol Stop: 01/08/22 21:42 Last Admin: 01/08/22 21:55 Dose: 3 ml Documented By: BASILIO Dexamethasone Sodium Phosphate (DexamethasonePf 10 Mg/Ml Vial) 10 mg IV NOW ONE Stop: 01/08/22 21:40 Last Admin: 01/08/22 21:50 Dose: 10 mg Documented By: BASILIO Furosemide (Furosemide Inj 20 Mg/2 Ml Vial) 20 mg IV ONE ONE Stop: 01/08/22 23:00 Last Admin: 01/08/22 23:56 Dose: 20 mg Documented By: BASILIO Magnesium Sulfate/Dextrose (Magnesium Sulfate / D5w) 1 gm in 100 mls @ 50 mls/hr IV Q2H CHRIS Stop: 01/09/22 02:59 Last Infusion: 01/09/22 05:05 Dose: 0 mls/hr Documented By: Admin: 01/09/22 02:41 Dose: 50 mls/hr Documented By: Infusion: 01/09/22 02:22 Dose: 0 mls/hr Documented By: Admin: 01/08/22 23:57 Dose: 50 mls/hr Documented By: BASILIO Doxycycline Hyclate 100 mg/ (Dextrose) 110 mls @ 50 mls/hr IV NOW STA Stop: 01/09/22 01:19 Last Infusion: 01/09/22 03:45 Dose: 0 mls/hr Documented By: Admin: 01/09/22 01:33 Dose: 50 mls/hr Documented By: BASILIO Remdesivir 200 mg/ Sodium (Chloride) 250 mls @ 125 mls/hr IV ONE STA; Protocol Stop: 01/09/22 02:21 Last Infusion: 01/09/22 05:06 Dose: 0 mls/hr Documented By: Admin: 01/09/22 02:41 Dose: 125 mls/hr Documented By: BASILIO Insulin Glargine (Lantus Per Unit Charge) 30 units SQ NOW STA Stop: 01/09/22 03:01 Last Admin: 01/09/22 04:53 Dose: 30 units Documented By: BASILIO Co-signed By: ELISA Metoprolol Tartrate (Metoprolol Tartrate 1 Mg/Ml Vial) 2.5 mg IV NOW STA Stop: 01/08/22 23:00 Last Admin: 01/08/22 23:56 Dose: 2.5 mg Documented By: BASILIO Imaging Data My Impression: Chest x-ray with bilateral airspace opacities right greater than left per my preliminary review. Discharge Plan Visit Data Chief Complaint: Shortness of Breath/Dyspnea ED Provider: Denton Smallwood Discharge Problem: Acute respiratory failure with hypoxia, Pneumonia due to COVID-19 virus, Ivonne vated troponin Discharge Instructions Interventions: ED Discharge Assessment Last Done: 01/09/22 02:42
[2022-01-09] MEDS: MAGNESIUM SULFATE / D5W 1 GM/100 ML BAG IV SCH (02:41)
[2022-01-09] MEDS ORDERED: ACETAMINOPHEN 325 MG TAB PO PRN (02:43)
[2022-01-09] MEDS ORDERED: PROMETHAZINE HCL 6.25 MG in SODIUM CHLORIDE 0.9% 50 ML IV PRN (02:43)
[2022-01-09] MEDS ORDERED: oxyCODONE HCL IR 5 MG TAB (IMMEDIATE RELEASE) PO PRN (02:43)
[2022-01-09] MEDS: INSULIN ASPART PER UNIT SC SCH ×5 (02:48→21:20)
[2022-01-09] MEDS: APIXABAN 5 MG TABLET PO SCH ×3 (04:53→21:22)
[2022-01-09] MEDS ORDERED: LEVALBUTEROL TARTRATE 15 GM HFA.AER.AD INH SCH (05:50)
[2022-01-09 06:35] LABS: Hematocrit (blood only) 35.2 % (40.1-51.0); Hemoglobin 11.9 g/dl (14.0-18.0); Mean Corpuscular Hemoglobin 28.8 pg (25.0-34.0); Mean Corpuscular Hgb Conc 33.8 g/dL (32.0-36.0); Mean Corpuscular Volume 85.2 fL (80.0-100.0); Mean Platelet Volume 12.8 fL (9.4-12.4); Platelet Count 173 K/uL (130-400); RDW Coefficient of Variation 13.9 % (11.5-14.5); Red Blood Count 4.13 M/uL (4.63-6.08); White Blood Count 11.91 K/ul (4.8-10.8)
[2022-01-09 07:17] LABS: Basophils # (auto) 0.01 K/uL (0-0.2); Basophils % (auto) 0.1 %; Echinocytes 2+; Immature Granulocytes # (auto) 0.07 K/uL (0.00-0.02); Immature Granulocytes % (auto) 0.6 %; Lymphocytes # (auto) 0.38 K/uL (1.2-3.4); Lymphocytes % (auto) 3.2 %; Monocytes # (auto) 0.53 K/uL (0.24-0.82); Monocytes % (auto) 4.5 %; Neutrophils # (auto) 10.92 K/uL (1.4-6.5); Neutrophils % (auto) 91.6 %
[2022-01-09 07:19] LABS: BUN Creatinine Ratio 20.8 (10-20); Calcium 8.6 mg/dl (8.5-10.1); Est GFR (African American) 76.1 ml/min; Est GFR (Non-African American) 65.6 ml/min; Phosphorus 3.6 mg/dl (2.5-4.9); Potassium 3.9 mmol/L (3.5-5.1); Troponin I High Sensitivity 321.3 pg/ml (0-20)
[2022-01-09] MEDS ORDERED: PHARMACY GLYCEMIC MGMT CONSULT PRN (07:25)
[2022-01-09 08:37] LABS: Estimated Average Glucose 217 mg/dl; Hemoglobin A1C 9.2 % (4.5-5.6)
[2022-01-09] MEDS ORDERED: FUROSEMIDE 20 MG TAB PO SCH (09:00)
[2022-01-09] MEDS ORDERED: LANTUS PER UNIT CHARGE SQ ONE (09:00)
--- NOTE | 2022-01-09 09:03 | XRay Report ---
XR chest 1V portable HISTORY: 89 years-old Male Chest Pain . Acute chest pain COMPARISON: Chest radiograph 08/09/2021 TECHNIQUE: AP view of the chest FINDINGS: Cardiac silhouette is enlarged. Atherosclerosis of the thoracic aorta. Left subclavian pacer/AICD. Mi ld right hemidiaphragmatic elevation. Pulmonary vascular congestion with interstitial coarsening. Unc hanged right hemidiaphragmatic elevation with subsegmental bibasilar densities. No pneumothorax. Chol ecystectomy. Degenerative changes of the shoulders and spine. IMPRESSION: 1. Cardiomegaly with pulmonary vascular congestion and probable mild pulmonary edema. 2. Mild subsegmental bibasilar atelectasis versus scarring. ACT 112: Negative or not required by law. The above report was generated using voice recognition software. It may contain grammatical, syntax o r spelling errors. Electronically signed by: Heri Diez M.D. 01/09/2022 9:02 AM
[2022-01-09] MEDS: GABAPENTIN 300 MG CAP PO SCH ×3 (09:09→21:19)
[2022-01-09] MEDS: DOFETILIDE 125 MCG CAPSULE PO SCH ×2 (09:09→21:22)
[2022-01-09] MEDS: CLOPIDOGREL BISULFATE 75 MG TAB PO SCH (09:11)
[2022-01-09] MEDS: ENALAPRIL MALEATE 10 MG TAB PO SCH (09:12)
[2022-01-09] MEDS: DOXYCYCLINE HYCLATE 100 MG CAP PO SCH ×2 (09:12→21:22)
[2022-01-09] MEDS: METOPROLOL SUCC 25MG EXT REL TAB PO SCH ×2 (09:13→21:23)
[2022-01-09] MEDS: FLUTICASONE/VILANTEROL 100/25MCG 14 PUFFS/INHALER INH SCH (09:13)
[2022-01-09] MEDS: dexAMETHasone 6 MG in SYRINGE 0 ML IV SCH (09:24)
[2022-01-09] MEDS: LEVALBUTEROL 1.25MG/0.5ML NEB NEB SCH ×2 (12:52→18:02)
--- NOTE | 2022-01-09 13:08 | Communication Note ---
Date of Service: January 09, 2022 Seen 5:30 PM Resting in bed on 4 L of oxygen via nasal cannula Patient's daughter at the bedside resting Patient is sitting up, not in distress, no accessory muscle use States he feels improved compared to admission Still having some productive cough No chest pain, leg pain Positive mild crackles at the bases No wheezing All labs noted and reviewed Acute hypoxic respiratory failure, COVID-19 pneumonia Possible underlying bacterial pneumonia coinfection -- Continue remdesivir, Decadron -- Incentive spirometer, flutter valve, nebs 4 times daily Already on Eliquis Acute on chronic combined systolic and diastolic CHF --Lasix 40 mg IV 1 dose given Usual Lasix 40 mg p.o. twice daily resumed
[2022-01-09] MEDS: CEROVITE ADV FORMULA TAB PO SCH (13:56)
--- NOTE | 2022-01-09 14:47 | Pharmacy Report ---
Pharmacy Glycemic Short Note 2 - Date of Service January 09, 2022 - Glycemic Short BSG Results (Last 24 hours): 01/08/22 01/09/22 01/09/22 20:40 02:08 05:58 Glucose 336 H* 275 H POC Glucose 376 H* 01/09/22 01/09/22 08:51 13:35 Glucose POC Glucose 262 H 283 H OUTPATIENT ANTIDIABETIC REGIMEN: * Amaryl 4 mg PO BID * Metformin 1000 mg PO BID * HbA1C = 9.2% (01/09/22) ASSESSMENT: * Mr Raymundo is an 89 y/o M with a PMH of T2DM who presents with COVID. * Patient's BSG on admission was 336 mg/dL. (this was prior to any steroids). * Patient given dexamethasone 10 mg in the evening of 01/08 and then started 6 mg IV daily on 01/09/22. * Patient's BSG at 0200 was 376 mg/dL and patient received 30 units of Lantus + 10 units of Novolog. * Fasting BSG was 262 mg/dL. * Lantus 10 units given to make 40 units today (full weight-based stress of 3). * Novolog weight-based stress of 3. - Tighten at dinner due to BSG trending upwards at lunch. Overnight checks. PLAN FOR INPATIENT GLYCEMIC CONTROL: * Hold outpatient oral diabetes medications * Basal insulin * Lantus 40 units SQ today and re-evaluate tomorrow. * Bolus insulin * NovoLog per scale ACHS or Q6hrs while NPO * Goal Range: Low 110 mg/dL - High 140 mg/dL * Correction Factor: 15 mg/dL/unit * Nutritional / Prandial insulin per carb ratio of 1 unit per 6 grams CHO consumed
[2022-01-09] MEDS ORDERED: FUROSEMIDE INJ 20 MG/2 ML VIAL IV ONE (17:41)
[2022-01-09] MEDS ORDERED: FUROSEMIDE 40 MG/4 ML VIAL IV ONE (18:16)
[2022-01-09 20:52] LABS: Appearance Urine Clear (Clear); Bacteria Urine Automated Negative (Negative); Bilirubin Urine Negative (Negative); Blood Urine Negative (Negative); Color Urine Yellow; Epithelial Cell Urine Auto 20-30 /lpf (0-5); Glucose Urine UA 1+ (Negative); Ketones Urine Negative (Negative); Leukocyte Esterase Urine Negative (Negative); Nitrite Urine Negative (Negative); Protein Urine Trace (Negative); RBC Urine Automated 0-4 /hpf (0-4); Specific Gravity Urine 1.016 (1.000-1.030); Urobilinogen Urine Negative (Negative)
[2022-01-09] MEDS ORDERED: LANTUS PER UNIT CHARGE SQ SCH ×2 (21:00)
[2022-01-09] MEDS: REMDESIVIR 100 MG in SODIUM CHLORIDE 0.9% 230 ML IV SCH (21:18)
--- NOTE | 2022-01-10 05:59 | Electrocardiogram Report ---
Test Reason : Blood Pressure : / mmHG Vent. Rate : 105 BPM Atrial Rate : 105 BPM P-R Int : 158 ms QRS Dur : 124 ms QT Int : 342 ms P-R-T Axes : 093 072 008 degrees QTc Int : 452 ms Poor data quality, interpretation may be adversely affected Atrial-sensed ventricular-paced rhythm Sinus tachycardia Abnormal ECG When compared with ECG of 09-AUG-2021 10:59, Ventricular pacing is now present Atrial pacing is no longer present Confirmed by Azar Hope ([id number]) on 01/10/2022 5:58:54 AM Referred By: REFERRED SELF Confirmed By:Azar Hope
[2022-01-10] MEDS: LEVALBUTEROL 1.25MG/0.5ML NEB NEB SCH ×4 (07:28→19:46)
[2022-01-10] MEDS ORDERED: LANTUS PER UNIT CHARGE SQ SCH (09:00)
[2022-01-10] MEDS: CEROVITE ADV FORMULA TAB PO SCH (10:02)
[2022-01-10] MEDS: FUROSEMIDE 40 MG TAB PO SCH ×2 (10:02→21:28)
[2022-01-10] MEDS: APIXABAN 5 MG TABLET PO SCH ×2 (10:02→21:27)
[2022-01-10] MEDS: DOXYCYCLINE HYCLATE 100 MG CAP PO SCH (10:02)
[2022-01-10] MEDS: DOFETILIDE 125 MCG CAPSULE PO SCH ×2 (10:03→21:28)
[2022-01-10] MEDS: ENALAPRIL MALEATE 10 MG TAB PO SCH (10:03)
[2022-01-10] MEDS: CLOPIDOGREL BISULFATE 75 MG TAB PO SCH (10:03)
[2022-01-10] MEDS: GABAPENTIN 300 MG CAP PO SCH ×3 (10:03→21:27)
[2022-01-10] MEDS: METOPROLOL SUCC 25MG EXT REL TAB PO SCH ×2 (10:03→21:28)
[2022-01-10] MEDS: FLUTICASONE/VILANTEROL 100/25MCG 14 PUFFS/INHALER INH SCH (10:04)
[2022-01-10] MEDS: INSULIN ASPART PER UNIT SC SCH ×4 (10:15→22:50)
[2022-01-10] MEDS: dexAMETHasone 6 MG in SYRINGE 0 ML IV SCH (11:10)
--- NOTE | 2022-01-10 14:17 | Hospitalist Progress Note ---
Date of Service January 10, 2022 Assessment & Plan (1) Acute respiratory failure with hypoxia: Plan: - likely due to COVID19 pneumonia - no history of pulmonary disease - CXR with atelectasis - requiring at least 4L [place] by NC - continue remdesivir x5 days, dexamethasone x10 days - wean O2 as tolerated (2) Pneumonia due to COVID-19 virus: Plan: - see above (3) CAD (coronary artery disease): Plan: - no chest pain - continue plavix, statin, apixaban - continue BB (4) Chronic heart failure with reduced ejection fraction and diastolic dysfunction: Plan: - not in exacerbation - continue BB, ACEi - continue lasix PO BID (5) PAF (paroxysmal atrial fibrillation): Plan: - continue BB and Apixaban (6) HTN (hypertension): Plan: - continue home meds as above Plan DVT ppx: apixaban Code Status: Full Code Dispo: richard Ortega MD [facility] Medicine Admission and Anticipated Discharge Date Admission Date: January 09, 2022 Subjective Patient with HFrEF (EF 30% 2020 s/p ICD), CAD s/p PCI, afib on Eliquis, bradycardia s/p PPM, pHTN, HTN, DM, h/o prostate CA s/p resection presented with shortness of breath, fevers, URI symptoms. Found to have COVID19 with acute hypoxic respiratory failure. Started on remdesivir, dexamethasone, oxygen supplementation. Patient feels pretty good today. denies chest pain, shortness of breath. Still with cough of some small white sputum. Denies abdominal pain, n/v/d, dysuria. Review of Systems Review of Systems: All systems reviewed & are unremarkable except as noted in Subjective Physical Exam Physical Exam: GENERAL: NAD, no respiratory distress SKIN: Pallor, warm HEENT: normal palpebral conjunctivae, no ptosis, moist buccal mucosa, NC in place NECK : Supple, no tenderness CHEST : CTAB, no wheezes, ronchi, rales HEART : RRR, no obvious murmurs ABDOMEN: no distention, nontender EXTREMITIES : no LE swelling, no LE tenderness, no other conspicuous deformities noted NEUROLOGIC : Coherent, no facial asymmetry, mild hearing impairment Results & Data Results & Data ([facility]) Vital Signs (Past 12 Hours) Vital Signs Temp Pulse Pulse Resp BP Pulse Ox Pulse Ox 01/10/22 12:09 36.5 C 71 19 153/77 H 94 01/10/22 10:47 60 18 93 01/10/22 08:00 65 01/10/22 08:00 01/10/22 08:00 92 01/10/22 07:42 36.4 C L 70 18 136/74 92 01/10/22 07:28 90 18 91 01/10/22 04:07 93 01/10/22 04:00 86 L 01/10/22 03:12 36.6 C 64 18 122/69 92 O2 Del Method O2 Del Method O2 Flow Rate O2 Flow Rate 01/10/22 12:09 Nasal Cannula 4.0 01/10/22 10:47 Nasal Cannula 4 01/10/22 08:00 01/10/22 08:00 Nasal Cannula 4 01/10/22 08:00 Nasal Cannula 4 01/10/22 07:42 High Flow Nasal Cannula 15 01/10/22 07:28 Nasal Cannula 5 01/10/22 04:07 Nasal Cannula 6 01/10/22 04:00 Nasal Cannula 4 01/10/22 03:12 Nasal Cannula 4 Diagnostic Findings Laboratory Results WBC 11.91 K/ul (4.8-10.8) H 01/09/22 05:58 RBC 4.13 M/uL (4.63-6.08) L 01/09/22 05:58 Hgb 11.9 g/dl (14.0-18.0) L 01/09/22 05:58 Hct 35.2 % (40.1-51.0) L 01/09/22 05:58 MCV 85.2 fL (80.0-100.0) 01/09/22 05:58 MCH 28.8 pg (25.0-34.0) 01/09/22 05:58 MCHC 33.8 g/dL (32.0-36.0) 01/09/22 05:58 RDW Std Deviation 43.0 fL (36.4-46.3) 01/09/22 05:58 RDW Coeff of Sarika 13.9 % (11.5-14.5) 01/09/22 05:58 Plt Count 173 K/uL (130-400) 01/09/22 05:58 MPV 12.8 fL (9.4-12.4) H 01/09/22 05:58 Immature Gran % (Auto) 0.6 % 01/09/22 05:58 Neut % (Auto) 91.6 % 01/09/22 05:58 Lymph % (Auto) 3.2 % 01/09/22 05:58 George % (Auto) 4.5 % 01/09/22 05:58 Eos % (Auto) 0.0 % 01/09/22 05:58 Baso % (Auto) 0.1 % 01/09/22 05:58 Reticulocyte % (Auto) 1.0 % (0.5-2.0) 01/08/22 23:50 Neut # (Auto) 10.92 K/uL (1.4-6.5) H 01/09/22 05:58 Lymph # (Auto) 0.38 K/uL (1.2-3.4) L 01/09/22 05:58 George # (Auto) 0.53 K/uL (0.24-0.82) 01/09/22 05:58 Eos # (Auto) 0.00 K/uL (0-0.50) 01/09/22 05:58 Baso # (Auto) 0.01 K/uL (0-0.2) 01/09/22 05:58 Reticulocyte # 0.04 10^6/uL (0.02-0.10) 01/08/22 23:50 Immature Gran # (Auto) 0.07 K/uL (0.00-0.02) H 01/09/22 05:58 Dohle Bodies 1+ 01/08/22 20:40 Echinocytes 2+ 01/09/22 05:58 APTT 27.5 Seconds (21.0-31.0) 01/08/22 20:40 PTT Ratio 1.0 01/08/22 20:40 POC pH 7.39 (7.35-7.45) 01/09/22 00:16 POC pCO2 37 mmHg (35-46) 01/09/22 00:16 POC pO2 113 mmHg (80-95) H 01/09/22 00:16 POC HCO3 22 kim/L (19-24) 01/09/22 00:16 POC Total CO2 23 mmol/L (24-31) L 01/09/22 00:16 POC Base Excess -3.0 kim/L (-9-1.8) 01/09/22 00:16 ABG pH 7.41 (7.35-7.45) 01/09/22 01:09 ABG pCO2 36 mmHg (35-46) 01/09/22 01:09 ABG pO2 93 mmHg (80-95) 01/09/22 01:09 ABG HCO3 23 mmol/L (19-24) 01/09/22 01:09 POC ABG O2 Sat 98.0 % (90-95) H 01/09/22 00:16 ABG O2 Saturation 99.2 % (90-95) H 01/09/22 01:09 ABG Base Excess -1.4 mEq/L (-9-1.8) 01/09/22 01:09 Azeem Test Pos (Pos) 01/09/22 01:09 Oxygen Given 40% 01/09/22 01:09 Sodium 135 mmol/L (136-145) L 01/09/22 05:58 Potassium 3.9 mmol/L (3.5-5.1) 01/09/22 05:58 Chloride 99 mmol/L (98-107) 01/09/22 05:58 Carbon Dioxide 24 mmol/L (21-32) 01/09/22 05:58 Anion Gap 12 (3-11) H 01/09/22 05:58 BUN 21 mg/dl (6-23) 01/09/22 05:58 Creatinine 1.01 mg/dl (0.6-1.4) 01/09/22 05:58 Est Cr Clr Drug Dosing 48.0 ml/min 01/09/22 05:58 Est GFR ( Amer) 76.1 ml/min 01/09/22 05:58 Est GFR (Non-Af Amer) 65.6 ml/min 01/09/22 05:58 BUN/Creatinine Ratio 20.8 (10-20) H 01/09/22 05:58 Glucose 275 mg/dl (70-99(Fasting)) H 01/09/22 05:58 POC Glucose 192 mg/dl (70-99) H 01/10/22 12:05 Estimat Average Glucose 217 mg/dl 01/09/22 05:58 Hemoglobin A1c 9.2 % (4.5-5.6) H 01/09/22 05:58 Osmolality 286 mOsm/kg (280-300) 01/08/22 20:40 Lactate 1.4 mmol/L (0.4-2.0) 01/08/22 23:50 Calcium 8.6 mg/dl (8.5-10.1) 01/09/22 05:58 Phosphorus 3.6 mg/dl (2.5-4.9) D 01/09/22 05:58 Magnesium 1.8 mg/dl (1.7-2.4) 01/08/22 20:40 Iron < 10 mcg/dl (35-175) L 01/08/22 23:50 Transferrin 193 mg/dl (200-360) L 01/08/22 23:50 Ferritin 300.4 ng/ml (8-388) 01/08/22 23:50 Total Bilirubin 0.8 mg/dl (0.2-1.0) 01/08/22 20:40 AST 43 U/L (13-39) H 01/08/22 20:40 ALT 34 U/L (7-52) 01/08/22 20:40 Alkaline Phosphatase 71 U/L (34-104) 01/08/22 20:40 Troponin I High Sens 321.3 pg/ml (0-20) H* D 01/09/22 05:58 Troponin I High Sens Cancelled 01/09/22 05:58 B-Natriuretic Peptide 1609 pg/ml (0-100) H 01/08/22 20:40 Total Protein 6.8 gm/dl (6.0-8.3) 01/08/22 20:40 Albumin 3.7 gm/dl (3.4-5.0) 01/08/22 20:40 Globulin 3.1 gm/dl (2.5-4.0) 01/08/22 20:40 Albumin/Globulin Ratio 1.2 (0.9-2) 01/08/22 20:40 Lipase 18 U/L (11-82) 01/08/22 20:40 Vitamin B12 > 1500 pg/ml (180-914) H 01/08/22 20:40 Folate > 22.30 ng/ml (>5.38) 01/08/22 20:40 Procalcitonin 9.38 ng/ml (0-0.5) H 01/08/22 20:40 TSH 1.450 uIu/ml (0.300-4.500) 01/08/22 20:40 Urine Color Yellow 01/09/22 19:48 Urine Appearance Clear (Clear) 01/09/22 19:48 Urine pH 5.0 (4.5-7.5) 01/09/22 19:48 Ur Specific [place] 1.016 (1.000-1.030) 01/09/22 19:48 Urine Protein Trace (Negative) H 01/09/22 19:48 Urine Glucose (UA) 1+ (Negative) H 01/09/22 19:48 Urine Ketones Negative (Negative) 01/09/22 19:48 Urine Blood Negative (Negative) 01/09/22 19:48 Urine Nitrite Negative (Negative) 01/09/22 19:48 Urine Bilirubin Negative (Negative) 01/09/22 19:48 Urine Urobilinogen Negative (Negative) 01/09/22 19:48 Ur Leukocyte Esterase Negative (Negative) 01/09/22 19:48 Urine WBC (Auto) 1-5 /hpf (0-5) 01/09/22 19:48 Urine RBC (Auto) 0-4 /hpf (0-4) 01/09/22 19:48 U Hyaline Cast (Auto) 10-30 /lpf (0-5) H 01/09/22 19:48 U Epithel Cells (Auto) 20-30 /lpf (0-5) H 01/09/22 19:48 Urine Bacteria (Auto) Negative (Negative) 01/09/22 19:48 Granular Casts 1-5 /lpf (0) H 01/09/22 19:48 Urine Osmolality 452 mOsm/kg (500-800) L 01/09/22 19:48 Ur Random Sodium 24 mmol/L 01/09/22 19:48 SARS-CoV-2, RNA, NAAT POSITIVE (NEGATIVE) A* 01/08/22 21:30 Blood Type A Positive 01/08/22 23:50 Antibody Screen NEGATIVE 01/08/22 23:50 Impressions Chest X-Ray 01/08/22 21:26 XR chest 1V portable HISTORY: 89 years-old Male Chest Pain . Acute chest pain COMPARISON: Chest radiograph 08/09/2021 TECHNIQUE: AP view of the chest FINDINGS: Cardiac silhouette is enlarged. Atherosclerosis of the thoracic aorta. Left subclavian pacer/AICD. Mild right hemidiaphragmatic elevation. Pulmonary vascular congestion with interstitial coarsening. Unchanged right hemidiaphragmatic elevation with subsegmental bibasilar densities. No pneumothorax. Cholecystectomy. Degenerative changes of the shoulders and spine. IMPRESSION: 1. Cardiomegaly with pulmonary vascular congestion and probable mild pulmonary edema. 2. Mild subsegmental bibasilar atelectasis versus scarring. ACT 112: Negative or not required by law. The above report was generated using voice recognition software. It may contain grammatical, syntax or spelling errors. Electronically signed by: Heri Diez M.D. 01/09/2022 9:02 AM Medications Administered Current Inpatient Medications Acetaminophen (Acetaminophen 325 Mg Tab) 650 mg PO Q4H PRN PRN Reason: Pain or Fever Stop: 02/08/22 02:42 Apixaban (Apixaban 5 Mg Tablet) 5 mg PO BID [facility] Stop: 02/08/22 02:42 Last Admin: 01/10/22 10:02 Dose: 5 mg Clopidogrel Bisulfate (Clopidogrel Bisulfate 75 Mg Tab) 75 mg PO QAM [facility] Stop: 02/08/22 08:59 Last Admin: 01/10/22 10:03 Dose: 75 mg Dextrose (Dextrose 50% 50 Ml Syringe) 25 - 50 ml IV UD PRN; Protocol PRN Reason: Hypoglycemia Protocol Stop: 02/08/22 00:22 Dofetilide (Dofetilide 125 Mcg Capsule) 500 mcg PO Q12H [facility] Stop: 02/08/22 08:59 Last Admin: 01/10/22 10:03 Dose: 500 mcg Doxycycline Hyclate (Doxycycline Hyclate 100 Mg Cap) 100 mg PO BID [facility] Stop: 01/16/22 08:59 Last Admin: 01/10/22 10:02 Dose: 100 mg Enalapril Maleate (Enalapril Maleate 10 Mg Tab) 40 mg PO QAM [facility] Stop: 02/08/22 08:59 Last Admin: 01/10/22 10:03 Dose: 40 mg Fluticasone/Vilanterol (Fluticasone/Vilanterol 100/25mcg 14 Puffs/Inhaler) 1 puffs INH QAM [facility] Stop: 02/08/22 08:59 Last Admin: 01/10/22 10:04 Dose: 1 puffs Furosemide (Furosemide 40 Mg Tab) 40 mg PO BID [facility] Stop: 02/09/22 08:59 Last Admin: 01/10/22 10:02 Dose: 40 mg Gabapentin (Gabapentin 300 Mg Cap) 600 mg PO HS [facility] Stop: 02/08/22 20:59 Last Admin: 01/09/22 21:19 Dose: 600 mg Gabapentin (Gabapentin 300 Mg Cap) 300 mg PO BID@0900,1400 [facility] Stop: 02/08/22 08:59 Last Admin: 01/10/22 12:27 Dose: 300 mg Glucagon (Glucagon For Inj 1 Mg Vial) 1 mg SQ UD PRN; Protocol PRN Reason: Hypoglycemia Protocol Stop: 02/08/22 00:22 Glucose (Glucose 40% Gel 15 Gm Tube) 15 - 30 gm PO UD PRN; Protocol PRN Reason: Hypoglycemia Protocol Stop: 02/08/22 00:22 Glucose (Glucose 10 Tab/Tube) 4 - 8 tab PO UD PRN; Protocol PRN Reason: Hypoglycemia Treatment Stop: 02/08/22 00:22 Remdesivir 100 mg/ Sodium (Chloride) 250 mls @ 250 mls/hr IV Q24H [facility] Stop: 01/12/22 20:59 Last Infusion: 01/09/22 22:58 Dose: Infused Dexamethasone 6 mg/ Syringe 1.5 mls @ 1 mls/min IV DAILY [facility] Stop: 02/08/22 08:59 Last Admin: 01/10/22 11:10 Dose: 1 mls/min Promethazine HCl 6.25 mg/ (Sodium Chloride) 50.25 mls @ 201 mls/hr IV Q6H PRN PRN Reason: Nausea And Vomiting Stop: 02/08/22 02:42 Insulin Aspart (Insulin Aspart Per Unit) 0 units SC ACHS [facility] Stop: 02/08/22 00:24 Last Admin: 01/10/22 12:25 Dose: 8 units Insulin Glargine (Lantus Per Unit Charge) 26 units SQ DAILY [facility] Stop: 02/09/22 08:59 Last Admin: 01/10/22 10:16 Dose: 26 units Levalbuterol HCl (Levalbuterol 1.25mg/0.5ml Neb) 1.25 mg NEB QIDR [facility]; Protocol Stop: 02/09/22 06:59 Last Admin: 01/10/22 10:47 Dose: 1.25 mg Metoprolol Succinate (Metoprolol Succ 25mg Ext Rel Tab) 12.5 mg PO BID [facility] Stop: 02/08/22 08:59 Last Admin: 01/10/22 10:03 Dose: 12.5 mg Miscellaneous (Carbohydrates For Hypoglycemia ) 15 - 30 gm PO UD PRN PRN Reason: Hypoglycemia Protocol Stop: 02/08/22 00:22 Miscellaneous Information (Pharmacy Glycemic Mgmt Consult) 1 each N/A UD PRN; Protocol PRN Reason: Consult Stop: 02/08/22 07:24 Multivitamins/Minerals (Cerovite Adv Formula Tab) 1 tab PO DAILY@1400 [facility] Stop: 02/08/22 13:59 Last Admin: 01/10/22 10:02 Dose: 1 tab Oxycodone HCl (Oxycodone Hcl Ir 5 Mg Tab (Immediate Release)) 5 mg PO Q4H PRN PRN Reason: Pain Stop: 01/23/22 02:42
--- NOTE | 2022-01-10 14:30 | Pharmacy Report ---
Pharmacy Glycemic Short Note 2 - Date of Service January 10, 2022 - Glycemic Short BSG Results (Last 24 hours): 01/09/22 01/09/22 01/10/22 18:19 21:13 07:35 POC Glucose 193 H 177 H 74 01/10/22 12:05 POC Glucose 192 H OUTPATIENT ANTIDIABETIC REGIMEN: * Amaryl 4 mg PO BID * Metformin 1000 mg PO BID * HbA1C = 9.2% (01/09/22) ASSESSMENT: 01/10/22 * Patient's BSGs yesterday were [phone] mg/dL. Patient received 83 units of insulin yesterday (40 units of basal and 43 units of bolus). * Patient's BSGs today are 74-192 mg/dL. * Reduce Lantus by 30% to 26 units as fasting below goal. * Tighten Novolog as lunch BSG trended up significantly. * Patient continues on dex 6 mg IV daily. Background * Mr Raymundo is an 89 y/o M with a PMH of T2DM who presents with COVID. * Patient's BSG on admission was 336 mg/dL. (this was prior to any steroids). * Patient given dexamethasone 10 mg in the evening of 01/08 and then started 6 mg IV daily on 01/09/22. * Patient's BSG at 0200 was 376 mg/dL and patient received 30 units of Lantus + 10 units of Novolog. * Fasting BSG was 262 mg/dL. * Lantus 10 units given to make 40 units today (full weight-based stress of 3). * Novolog weight-based stress of 3. - Tighten at dinner due to BSG trending upwards at lunch. Overnight checks. PLAN FOR INPATIENT GLYCEMIC CONTROL: * Hold outpatient oral diabetes medications * Basal insulin * Lantus 26 units daily. * Bolus insulin * NovoLog per scale ACHS or Q6hrs while NPO * Goal Range: Low 110 mg/dL - High 140 mg/dL * Correction Factor: 15 mg/dL/unit * Nutritional / Prandial insulin per carb ratio of 1 unit per 5 grams CHO consumed
[2022-01-10] MEDS: REMDESIVIR 100 MG in SODIUM CHLORIDE 0.9% 230 ML IV SCH (21:27)
[2022-01-11] MEDS: LEVALBUTEROL 1.25MG/0.5ML NEB NEB SCH (07:32)
[2022-01-11 08:07] LABS: Basophils # (auto) 0.02 K/uL (0-0.2); Basophils % (auto) 0.2 %; Eosinophils # (auto) 0.02 K/uL (0-0.50); Eosinophils % (auto) 0.2 %; Hematocrit (blood only) 36.1 % (40.1-51.0); Hemoglobin 12.2 g/dl (14.0-18.0); Immature Granulocytes # (auto) 0.08 K/uL (0.00-0.02); Immature Granulocytes % (auto) 0.7 %; Lymphocytes # (auto) 1.07 K/uL (1.2-3.4); Lymphocytes % (auto) 9.9 %; Mean Corpuscular Hgb Conc 33.8 g/dL (32.0-36.0); Mean Corpuscular Volume 85.7 fL (80.0-100.0); Monocytes # (auto) 0.94 K/uL (0.24-0.82); Monocytes % (auto) 8.7 %; Neutrophils % (auto) 80.3 %; Platelet Count 254 K/uL (130-400); RDW Standard Deviation 43.3 fL (36.4-46.3); Red Blood Count 4.21 M/uL (4.63-6.08); White Blood Count 10.83 K/ul (4.8-10.8)
[2022-01-11] MEDS: INSULIN ASPART PER UNIT SC SCH ×4 (08:24→22:11)
[2022-01-11] MEDS: FLUTICASONE/VILANTEROL 100/25MCG 14 PUFFS/INHALER INH SCH (08:25)
[2022-01-11] MEDS: dexAMETHasone 6 MG in SYRINGE 0 ML IV SCH (08:51)
[2022-01-11] MEDS: DOFETILIDE 125 MCG CAPSULE PO SCH ×2 (08:52→22:29)
[2022-01-11] MEDS: APIXABAN 5 MG TABLET PO SCH ×2 (08:52→22:30)
[2022-01-11] MEDS: CLOPIDOGREL BISULFATE 75 MG TAB PO SCH (08:52)
[2022-01-11] MEDS: ENALAPRIL MALEATE 10 MG TAB PO SCH (08:53)
[2022-01-11] MEDS: FUROSEMIDE 40 MG TAB PO SCH ×2 (08:53→22:29)
[2022-01-11] MEDS: GABAPENTIN 300 MG CAP PO SCH ×3 (08:53→22:29)
[2022-01-11] MEDS: METOPROLOL SUCC 25MG EXT REL TAB PO SCH ×2 (08:54→22:31)
[2022-01-11 09:16] LABS: Albumin Level 2.9 gm/dl (3.4-5.0); Bilirubin,Total 0.3 mg/dl (0.2-1.0); Calcium 8.8 mg/dl (8.5-10.1); Creatinine Clr Calc Pharmacy 48.5 ml/min; Est GFR (Non-African American) 66.4 ml/min; Globulin 2.9 gm/dl (2.5-4.0); Magnesium 2.1 mg/dl (1.7-2.4); Phosphorus 3.2 mg/dl (2.5-4.9); Potassium 3.7 mmol/L (3.5-5.1); Total Protein 5.8 gm/dl (6.0-8.3)
[2022-01-11] MEDS ORDERED: LEVALBUTEROL HCL 1.25 MG/3 ML NEB INH PRN (10:35)
--- NOTE | 2022-01-11 10:41 | Pharmacy Report ---
Pharmacy Glycemic Short Note 2 - Date of Service January 11, 2022 - Glycemic Short BSG Results (Last 24 hours): 01/10/22 01/10/22 01/10/22 12:05 16:53 20:28 Glucose POC Glucose 192 H 202 H 222 H 01/11/22 01/11/22 01/11/22 07:21 07:55 07:56 Glucose 57 L POC Glucose 58 L* 55 L* 01/11/22 08:13 Glucose POC Glucose 75 OUTPATIENT ANTIDIABETIC REGIMEN: * Amaryl 4 mg PO BID * Metformin 1000 mg PO BID * HbA1C = 9.2% (01/09/22) ASSESSMENT: 01/11/22 * Mr. Raymundo received 54 units of SQ insulin yesterday * 26 units Lantus + 28 units Novolog * BSGs: 74, 192, 202, 222 mg/dL * Fasting hypoglycemia, BSG of 55 mg/dL. Lantus held this morning. Will reduce dose by 50%. * Post prandial hyperglycemia due to dexamethasone. Will tighten carb coverage. 01/10/22 * Patient's BSGs yesterday were [phone] mg/dL. Patient received 83 units of insulin yesterday (40 units of basal and 43 units of bolus). * Patient's BSGs today are 74-192 mg/dL. * Reduce Lantus by 30% to 26 units as fasting below goal. * Tighten Novolog as lunch BSG trended up significantly. * Patient continues on dex 6 mg IV daily. Background * Mr Raymundo is an 89 y/o M with a PMH of T2DM who presents with COVID. * Patient's BSG on admission was 336 mg/dL. (this was prior to any steroids). * Patient given dexamethasone 10 mg in the evening of 01/08 and then started 6 mg IV daily on 01/09/22. * Patient's BSG at 0200 was 376 mg/dL and patient received 30 units of Lantus + 10 units of Novolog. * Fasting BSG was 262 mg/dL. * Lantus 10 units given to make 40 units today (full weight-based stress of 3). * Novolog weight-based stress of 3. - Tighten at dinner due to BSG trending upwards at lunch. Overnight checks. PLAN FOR INPATIENT GLYCEMIC CONTROL: * Hold outpatient oral diabetes medications * Basal insulin * Held in AM * Resumed at lunch - Lantus 12 units SQ x 1 * Bolus insulin * NovoLog per scale ACHS or Q6hrs while NPO * Goal Range: Low 110 mg/dL - High 140 mg/dL * Correction Factor: 15 mg/dL/unit * Nutritional / Prandial insulin per carb ratio of 1 unit per 4 grams CHO consumed
--- NOTE | 2022-01-11 11:25 | Hospitalist Progress Note ---
Date of Service January 11, 2022 Assessment & Plan (1) Acute respiratory failure with hypoxia: Plan: - likely due to COVID19 pneumonia - no history of pulmonary disease - CXR with atelectasis - O2 supplementation as needed - continue remdesivir x5 days, dexamethasone x10 days - wean O2 as tolerated (2) Pneumonia due to COVID-19 virus: Plan: - see above (3) CAD (coronary artery disease): Plan: - no chest pain - continue plavix, statin, apixaban - continue BB (4) Chronic heart failure with reduced ejection fraction and diastolic dysfunction: Plan: - not in exacerbation - continue BB, ACEi - continue lasix PO BID (5) PAF (paroxysmal atrial fibrillation): Plan: - continue BB and Apixaban (6) HTN (hypertension): Plan: - continue home meds as above Plan DVT ppx: apixaban Code Status: Full Code Dispo: richard Ortega MD [facility] Medicine Admission and Anticipated Discharge Date Admission Date: January 09, 2022 Subjective Patient with HFrEF (EF 30% 2020 s/p ICD), CAD s/p PCI, afib on Eliquis, bradycardia s/p PPM, pHTN, HTN, DM, h/o prostate CA s/p resection presented with shortness of breath, fevers, URI symptoms. Found to have COVID19 with acute hypoxic respiratory failure. Started on remdesivir, dexamethasone, oxygen supplementation. Patient feels pretty good today. denies chest pain, shortness of breath, abdominal pain, n/v/d, dysuria. Oxygen supplementation down to 2L NC. Review of Systems Review of Systems: As per HPI, all other systems reviewed and negative Physical Exam Physical Exam: GENERAL: NAD, no respiratory distress SKIN: Pallor, warm HEENT: normal palpebral conjunctivae, no ptosis, moist buccal mucosa, NC in place NECK : Supple, no tenderness CHEST : CTAB, no wheezes, ronchi, rales - on 2L NC HEART : RRR, no obvious murmurs ABDOMEN: no distention, nontender EXTREMITIES : no LE swelling, no LE tenderness, no other conspicuous deformities noted NEUROLOGIC : Coherent, no facial asymmetry, mild hearing impairment Results & Data Results & Data ([facility]) Vital Signs (Past 12 Hours) Vital Signs Temp Pulse Resp BP Pulse Ox O2 Del Method O2 Flow Rate 01/11/22 11:13 36.8 C 73 18 152/86 H 94 Nasal Cannula 2 01/11/22 09:00 Nasal Cannula 3 01/11/22 08:09 36.9 C 72 18 171/73 H 92 Nasal Cannula 3 01/11/22 07:32 69 16 94 Nasal Cannula 2 01/11/22 03:00 36.4 C L 77 20 167/82 H 91 Nasal Cannula 3 01/10/22 23:43 36.4 C L 69 20 159/76 H 92 Nasal Cannula 3 Diagnostic Findings Laboratory Results WBC 10.83 K/ul (4.8-10.8) H 01/11/22 07:21 RBC 4.21 M/uL (4.63-6.08) L 01/11/22 07:21 Hgb 12.2 g/dl (14.0-18.0) L 01/11/22 07:21 Hct 36.1 % (40.1-51.0) L 01/11/22 07:21 MCV 85.7 fL (80.0-100.0) 01/11/22 07:21 MCH 29.0 pg (25.0-34.0) 01/11/22 07:21 MCHC 33.8 g/dL (32.0-36.0) 01/11/22 07:21 RDW Std Deviation 43.3 fL (36.4-46.3) 01/11/22 07:21 RDW Coeff of Sarika 14.0 % (11.5-14.5) 01/11/22 07:21 Plt Count 254 K/uL (130-400) 01/11/22 07:21 MPV 12.0 fL (9.4-12.4) 01/11/22 07:21 Immature Gran % (Auto) 0.7 % 01/11/22 07:21 Neut % (Auto) 80.3 % 01/11/22 07:21 Lymph % (Auto) 9.9 % 01/11/22 07:21 [place] % (Auto) 8.7 % 01/11/22 07:21 Eos % (Auto) 0.2 % 01/11/22 07:21 Baso % (Auto) 0.2 % 01/11/22 07:21 Reticulocyte % (Auto) 1.0 % (0.5-2.0) 01/08/22 23:50 Neut # (Auto) 8.70 K/uL (1.4-6.5) H 01/11/22 07:21 Lymph # (Auto) 1.07 K/uL (1.2-3.4) L 01/11/22 07:21 [place] # (Auto) 0.94 K/uL (0.24-0.82) H 01/11/22 07:21 Eos # (Auto) 0.02 K/uL (0-0.50) 01/11/22 07:21 Baso # (Auto) 0.02 K/uL (0-0.2) 01/11/22 07:21 Reticulocyte # 0.04 10^6/uL (0.02-0.10) 01/08/22 23:50 Immature Gran # (Auto) 0.08 K/uL (0.00-0.02) H 01/11/22 07:21 Dohle Bodies 1+ 01/08/22 20:40 Echinocytes 2+ 01/09/22 05:58 APTT 27.5 Seconds (21.0-31.0) 01/08/22 20:40 PTT Ratio 1.0 01/08/22 20:40 POC pH 7.39 (7.35-7.45) 01/09/22 00:16 POC pCO2 37 mmHg (35-46) 01/09/22 00:16 POC pO2 113 mmHg (80-95) H 01/09/22 00:16 POC HCO3 22 kim/L (19-24) 01/09/22 00:16 POC Total CO2 23 mmol/L (24-31) L 01/09/22 00:16 POC Base Excess -3.0 kim/L (-9-1.8) 01/09/22 00:16 ABG pH 7.41 (7.35-7.45) 01/09/22 01:09 ABG pCO2 36 mmHg (35-46) 01/09/22 01:09 ABG pO2 93 mmHg (80-95) 01/09/22 01:09 ABG HCO3 23 mmol/L (19-24) 01/09/22 01:09 POC ABG O2 Sat 98.0 % (90-95) H 01/09/22 00:16 ABG O2 Saturation 99.2 % (90-95) H 01/09/22 01:09 ABG Base Excess -1.4 mEq/L (-9-1.8) 01/09/22 01:09 Azeem Test Pos (Pos) 01/09/22 01:09 Oxygen Given 40% 01/09/22 01:09 Sodium 142 mmol/L (136-145) 01/11/22 07:21 Potassium 3.7 mmol/L (3.5-5.1) 01/11/22 07:21 Chloride 107 mmol/L (98-107) 01/11/22 07:21 Carbon Dioxide 29 mmol/L (21-32) 01/11/22 07:21 Anion Gap 6 (3-11) 01/11/22 07:21 BUN 41 mg/dl (6-23) H 01/11/22 07:21 Creatinine 1.00 mg/dl (0.6-1.4) 01/11/22 07:21 Est Cr Clr Drug Dosing 48.5 ml/min 01/11/22 07:21 Est GFR ( Amer) 77.0 ml/min 01/11/22 07:21 Est GFR (Non-Af Amer) 66.4 ml/min 01/11/22 07:21 BUN/Creatinine Ratio 41.0 (10-20) H 01/11/22 07:21 Glucose 57 mg/dl (70-99(Fasting)) L 01/11/22 07:21 POC Glucose 170 mg/dl (70-99) H 01/11/22 11:14 Estimat Average Glucose 217 mg/dl 01/09/22 05:58 Hemoglobin A1c 9.2 % (4.5-5.6) H 01/09/22 05:58 Osmolality 286 mOsm/kg (280-300) 01/08/22 20:40 Lactate 1.4 mmol/L (0.4-2.0) 01/08/22 23:50 Calcium 8.8 mg/dl (8.5-10.1) 01/11/22 07:21 Phosphorus 3.2 mg/dl (2.5-4.9) 01/11/22 07:21 Magnesium 2.1 mg/dl (1.7-2.4) 01/11/22 07:21 Iron < 10 mcg/dl (35-175) L 01/08/22 23:50 Transferrin 193 mg/dl (200-360) L 01/08/22 23:50 Ferritin 300.4 ng/ml (8-388) 01/08/22 23:50 Total Bilirubin 0.3 mg/dl (0.2-1.0) 01/11/22 07:21 AST 21 U/L (13-39) 01/11/22 07:21 ALT 30 U/L (7-52) 01/11/22 07:21 Alkaline Phosphatase 53 U/L (34-104) 01/11/22 07:21 Troponin I High Sens 321.3 pg/ml (0-20) H* D 01/09/22 05:58 Troponin I High Sens Cancelled 01/09/22 05:58 B-Natriuretic Peptide 1609 pg/ml (0-100) H 01/08/22 20:40 Total Protein 5.8 gm/dl (6.0-8.3) L 01/11/22 07:21 Albumin 2.9 gm/dl (3.4-5.0) L 01/11/22 07:21 Globulin 2.9 gm/dl (2.5-4.0) 01/11/22 07:21 Albumin/Globulin Ratio 1.0 (0.9-2) 01/11/22 07:21 Lipase 18 U/L (11-82) 01/08/22 20:40 Vitamin B12 > 1500 pg/ml (180-914) H 01/08/22 20:40 Folate > 22.30 ng/ml (>5.38) 01/08/22 20:40 Procalcitonin 9.38 ng/ml (0-0.5) H 01/08/22 20:40 TSH 1.450 uIu/ml (0.300-4.500) 01/08/22 20:40 Urine Color Yellow 01/09/22 19:48 Urine Appearance Clear (Clear) 01/09/22 19:48 Urine pH 5.0 (4.5-7.5) 01/09/22 19:48 Ur Specific [place] 1.016 (1.000-1.030) 01/09/22 19:48 Urine Protein Trace (Negative) H 01/09/22 19:48 Urine Glucose (UA) 1+ (Negative) H 01/09/22 19:48 Urine Ketones Negative (Negative) 01/09/22 19:48 Urine Blood Negative (Negative) 01/09/22 19:48 Urine Nitrite Negative (Negative) 01/09/22 19:48 Urine Bilirubin Negative (Negative) 01/09/22 19:48 Urine Urobilinogen Negative (Negative) 01/09/22 19:48 Ur Leukocyte Esterase Negative (Negative) 01/09/22 19:48 Urine WBC (Auto) 1-5 /hpf (0-5) 01/09/22 19:48 Urine RBC (Auto) 0-4 /hpf (0-4) 01/09/22 19:48 U Hyaline Cast (Auto) 10-30 /lpf (0-5) H 01/09/22 19:48 U Epithel Cells (Auto) 20-30 /lpf (0-5) H 01/09/22 19:48 Urine Bacteria (Auto) Negative (Negative) 01/09/22 19:48 Granular Casts 1-5 /lpf (0) H 01/09/22 19:48 Urine Osmolality 452 mOsm/kg (500-800) L 01/09/22 19:48 Ur Random Sodium 24 mmol/L 01/09/22 19:48 SARS-CoV-2, RNA, NAAT POSITIVE (NEGATIVE) A* 01/08/22 21:30 Blood Type A Positive 01/08/22 23:50 Antibody Screen NEGATIVE 01/08/22 23:50 Impressions Chest X-Ray 01/08/22 21:26 XR chest 1V portable HISTORY: 89 years-old Male Chest Pain . Acute chest pain COMPARISON: Chest radiograph 08/09/2021 TECHNIQUE: AP view of the chest FINDINGS: Cardiac silhouette is enlarged. Atherosclerosis of the thoracic aorta. Left subclavian pacer/AICD. Mild right hemidiaphragmatic elevation. Pulmonary vascular congestion with interstitial coarsening. Unchanged right hemidiaphragmatic elevation with subsegmental bibasilar densities. No pneumothorax. Cholecystectomy. Degenerative changes of the shoulders and spine. IMPRESSION: 1. Cardiomegaly with pulmonary vascular congestion and probable mild pulmonary edema. 2. Mild subsegmental bibasilar atelectasis versus scarring. ACT 112: Negative or not required by law. The above report was generated using voice recognition software. It may contain grammatical, syntax or spelling errors. Electronically signed by: Heri Diez M.D. 01/09/2022 9:02 AM Medications Administered Current Inpatient Medications Acetaminophen (Acetaminophen 325 Mg Tab) 650 mg PO Q4H PRN PRN Reason: Pain or Fever Stop: 02/08/22 02:42 Apixaban (Apixaban 5 Mg Tablet) 5 mg PO BID CHRIS Stop: 02/08/22 02:42 Last Admin: 01/11/22 08:52 Dose: 5 mg Clopidogrel Bisulfate (Clopidogrel Bisulfate 75 Mg Tab) 75 mg PO QAM CHRIS Stop: 02/08/22 08:59 Last Admin: 01/11/22 08:52 Dose: 75 mg Dexamethasone (Dexamethasone 1 Mg Tab) 6 mg PO DAILY CHRIS Stop: 01/18/22 08:59 Dextrose (Dextrose 50% 50 Ml Syringe) 25 - 50 ml IV UD PRN; Protocol PRN Reason: Hypoglycemia Protocol Stop: 02/08/22 00:22 Dofetilide (Dofetilide 125 Mcg Capsule) 500 mcg PO Q12H CHRIS Stop: 02/08/22 08:59 Last Admin: 01/11/22 08:52 Dose: 500 mcg Enalapril Maleate (Enalapril Maleate 10 Mg Tab) 40 mg PO QAM CHRIS Stop: 02/08/22 08:59 Last Admin: 01/11/22 08:53 Dose: 40 mg Fluticasone/Vilanterol (Fluticasone/Vilanterol 100/25mcg 14 Puffs/Inhaler) 1 puffs INH QAM CHRIS Stop: 02/08/22 08:59 Last Admin: 01/11/22 08:25 Dose: 1 puffs Furosemide (Furosemide 40 Mg Tab) 40 mg PO BID CHRIS Stop: 02/09/22 08:59 Last Admin: 01/11/22 08:53 Dose: 40 mg Gabapentin (Gabapentin 300 Mg Cap) 600 mg PO HS CHRIS Stop: 02/08/22 20:59 Last Admin: 01/10/22 21:27 Dose: 600 mg Gabapentin (Gabapentin 300 Mg Cap) 300 mg PO BID@0900,1400 CHRIS Stop: 02/08/22 08:59 Last Admin: 01/11/22 08:53 Dose: 300 mg Glucagon (Glucagon For Inj 1 Mg Vial) 1 mg SQ UD PRN; Protocol PRN Reason: Hypoglycemia Protocol Stop: 02/08/22 00:22 Glucose (Glucose 40% Gel 15 Gm Tube) 15 - 30 gm PO UD PRN; Protocol PRN Reason: Hypoglycemia Protocol Stop: 02/08/22 00:22 Glucose (Glucose 10 Tab/Tube) 4 - 8 tab PO UD PRN; Protocol PRN Reason: Hypoglycemia Treatment Stop: 02/08/22 00:22 Remdesivir 100 mg/ Sodium (Chloride) 250 mls @ 250 mls/hr IV Q24H CHRIS Stop: 01/12/22 20:59 Last Infusion: 01/10/22 22:51 Dose: Infused Promethazine HCl 6.25 mg/ (Sodium Chloride) 50.25 mls @ 201 mls/hr IV Q6H PRN PRN Reason: Nausea And Vomiting Stop: 02/08/22 02:42 Insulin Aspart (Insulin Aspart Per Unit) 0 units SC ACHS CHRIS Stop: 02/08/22 00:24 Last Admin: 01/11/22 08:24 Dose: Not Given Levalbuterol HCl (Levalbuterol Hcl 1.25 Mg/3 Ml Neb) 1.25 mg INH QIDR PRN; Protocol PRN Reason: Wheezing Stop: 02/10/22 10:34 Metoprolol Succinate (Metoprolol Succ 25mg Ext Rel Tab) 12.5 mg PO BID CHRIS Stop: 02/08/22 08:59 Last Admin: 01/11/22 08:54 Dose: 12.5 mg Miscellaneous (Carbohydrates For Hypoglycemia ) 15 - 30 gm PO UD PRN PRN Reason: Hypoglycemia Protocol Stop: 02/08/22 00:22 Miscellaneous Information (Pharmacy Glycemic Mgmt Consult) 1 each N/A UD PRN; Protocol PRN Reason: Consult Stop: 02/08/22 07:24 Multivitamins/Minerals (Cerovite Adv Formula Tab) 1 tab PO DAILY@1400 CHRIS Stop: 02/08/22 13:59 Last Admin: 01/10/22 10:02 Dose: 1 tab
[2022-01-11] MEDS ORDERED: LANTUS PER UNIT CHARGE SQ SCH (12:00)
[2022-01-11] MEDS: CEROVITE ADV FORMULA TAB PO SCH (12:51)
[2022-01-11] MEDS: REMDESIVIR 100 MG in SODIUM CHLORIDE 0.9% 230 ML IV SCH (22:18)
[2022-01-12 07:44] LABS: Basophils # (auto) 0.02 K/uL (0-0.2); Basophils % (auto) 0.2 %; Eosinophils # (auto) 0.04 K/uL (0-0.50); Eosinophils % (auto) 0.4 %; Hematocrit (blood only) 38.4 % (40.1-51.0); Hemoglobin 12.8 g/dl (14.0-18.0); Immature Granulocytes # (auto) 0.09 K/uL (0.00-0.02); Lymphocytes # (auto) 1.22 K/uL (1.2-3.4); Lymphocytes % (auto) 13.7 %; Mean Corpuscular Hemoglobin 28.5 pg (25.0-34.0); Mean Corpuscular Hgb Conc 33.3 g/dL (32.0-36.0); Mean Corpuscular Volume 85.5 fL (80.0-100.0); Mean Platelet Volume 11.7 fL (9.4-12.4); Monocytes # (auto) 0.82 K/uL (0.24-0.82); Monocytes % (auto) 9.2 %; Neutrophils # (auto) 6.72 K/uL (1.4-6.5); Neutrophils % (auto) 75.5 %; Platelet Count 313 K/uL (130-400); RDW Standard Deviation 43.8 fL (36.4-46.3); Red Blood Count 4.49 M/uL (4.63-6.08); White Blood Count 8.91 K/ul (4.8-10.8)
[2022-01-12] MEDS: METOPROLOL SUCC 25MG EXT REL TAB PO SCH ×2 (08:32→20:47)
[2022-01-12] MEDS: CLOPIDOGREL BISULFATE 75 MG TAB PO SCH (08:32)
[2022-01-12] MEDS: DOFETILIDE 125 MCG CAPSULE PO SCH ×2 (08:33→20:46)
[2022-01-12] MEDS: GABAPENTIN 300 MG CAP PO SCH ×3 (08:33→20:48)
[2022-01-12] MEDS: APIXABAN 5 MG TABLET PO SCH ×2 (08:33→20:48)
[2022-01-12] MEDS: ENALAPRIL MALEATE 10 MG TAB PO SCH (08:33)
[2022-01-12] MEDS: FLUTICASONE/VILANTEROL 100/25MCG 14 PUFFS/INHALER INH SCH (08:34)
[2022-01-12] MEDS: FUROSEMIDE 40 MG TAB PO SCH ×2 (08:34→20:46)
[2022-01-12] MEDS: INSULIN ASPART PER UNIT SC SCH ×4 (08:47→20:31)
--- NOTE | 2022-01-12 10:22 | Pharmacy Report ---
Pharmacy Glycemic Short Note 2 - Date of Service January 12, 2022 - Glycemic Short BSG Results (Last 24 hours): 01/11/22 01/11/22 01/11/22 11:14 16:36 20:09 POC Glucose 170 H 88 211 H 01/12/22 01/12/22 01/12/22 07:55 07:57 08:21 POC Glucose 60 L* 56 L* 102 H OUTPATIENT ANTIDIABETIC REGIMEN: * Amaryl 4 mg PO BID * Metformin 1000 mg PO BID * HbA1C = 9.2% (01/09/22) ASSESSMENT: 01/12/22 Mr. Raymundo received 31 units of SQ insulin yesterday * 12 units Lantus + 19 units Novolog * BSGs: 55, 170, 88, 211 mg/dL * Fasting hypoglycemia again today (BSG 56 mg/dL) despite 50% reduction in basal insulin yesterday --> discontinue Lantus. Patient may be better controlled on once daily NPH. Will hold off on further basal until fasting (off basal insulin) can be evaluated on 01/13. * Dexamethasone 6 mg IV switched to PO today. Dexamethasone was given with lunch today (not with breakfast), therefore Novolog coverage for breakfast was too aggressive and produced a low at lunchtime. Will loosen novolog parameters for the remainder of today. I suspect they will need to be tightened tomorrow. 01/11/22 * Mr. Raymundo received 54 units of SQ insulin yesterday * 26 units Lantus + 28 units Novolog * BSGs: 74, 192, 202, 222 mg/dL * Fasting hypoglycemia, BSG of 55 mg/dL. Lantus held this morning. Will reduce dose by 50%. * Post prandial hyperglycemia due to dexamethasone. Will tighten carb coverage. 01/10/22 * Patient's BSGs yesterday were [phone] mg/dL. Patient received 83 units of insulin yesterday (40 units of basal and 43 units of bolus). * Patient's BSGs today are 74-192 mg/dL. * Reduce Lantus by 30% to 26 units as fasting below goal. * Tighten Novolog as lunch BSG trended up significantly. * Patient continues on dex 6 mg IV daily. Background * Mr Raymundo is an 89 y/o M with a PMH of T2DM who presents with COVID. * Patient's BSG on admission was 336 mg/dL. (this was prior to any steroids). * Patient given dexamethasone 10 mg in the evening of 01/08 and then started 6 mg IV daily on 01/09/22. * Patient's BSG at 0200 was 376 mg/dL and patient received 30 units of Lantus + 10 units of Novolog. * Fasting BSG was 262 mg/dL. * Lantus 10 units given to make 40 units today (full weight-based stress of 3). * Novolog weight-based stress of 3. - Tighten at dinner due to BSG trending upwards at lunch. Overnight checks. PLAN FOR INPATIENT GLYCEMIC CONTROL: * Hold outpatient oral diabetes medications * Basal insulin * Hold * Bolus insulin * NovoLog per scale ACHS or Q6hrs while NPO * Goal Range: Low 110 mg/dL - High 140 mg/dL * Correction Factor: 30 mg/dL/unit * Nutritional / Prandial insulin per carb ratio of 1 unit per 8 grams CHO consumed
[2022-01-12] MEDS: dexAMETHasone 4 MG TAB PO SCH (12:28)
--- NOTE | 2022-01-12 12:46 | Hospitalist Progress Note ---
Date of Service January 12, 2022 Assessment & Plan (1) Acute respiratory failure with hypoxia: Plan: - likely due to COVID19 pneumonia - no history of pulmonary disease - CXR with atelectasis - O2 supplementation as needed - continue remdesivir x5 days, dexamethasone x10 days - wean O2 as tolerated (2) Pneumonia due to COVID-19 virus: Plan: - see above (3) CAD (coronary artery disease): Plan: - no chest pain - continue plavix, statin, apixaban - continue BB (4) Chronic heart failure with reduced ejection fraction and diastolic dysfunction: Plan: - not in exacerbation - continue BB, ACEi - continue lasix PO BID (5) PAF (paroxysmal atrial fibrillation): Plan: - continue BB and Apixaban (6) HTN (hypertension): Plan: - continue home meds as above Plan DVT ppx: apixaban Code Status: Full Code Dispo: richard Ortega MD [facility] Medicine Admission and Anticipated Discharge Date Admission Date: January 09, 2022 Subjective Patient with HFrEF (EF 30% 2020 s/p ICD), CAD s/p PCI, afib on Eliquis, bradycardia s/p PPM, pHTN, HTN, DM, h/o prostate CA s/p resection presented with shortness of breath, fevers, URI symptoms. Found to have COVID19 with acute hypoxic respiratory failure. Started on remdesivir, dexamethasone, oxygen supplementation. Patient feels well today but did have some night sweats overnight. denies chest pain, shortness of breath, abdominal pain, n/v/d, dysuria. Oxygen supplementation down to 1L NC. Review of Systems Review of Systems: All systems reviewed & are unremarkable except as noted in Subjective Physical Exam Physical Exam: GENERAL: NAD, no respiratory distress SKIN: Pallor, warm HEENT: normal palpebral conjunctivae, no ptosis, moist buccal mucosa, NC in place NECK : Supple, no tenderness CHEST : CTAB, no wheezes, ronchi, rales - on 1L NC HEART : RRR, no obvious murmurs ABDOMEN: no distention, nontender EXTREMITIES : no LE swelling, no LE tenderness, no other conspicuous deformities noted NEUROLOGIC : Coherent, no facial asymmetry, mild hearing impairment Results & Data Results & Data ([facility]) Vital Signs (Past 12 Hours) Vital Signs Temp Pulse Resp BP Pulse Ox O2 Del Method O2 Flow Rate 10/28/22 11:55 36.2 C L 93 H 20 125/77 92 Nasal Cannula 1 01/12/22 08:00 Nasal Cannula 3 01/12/22 08:03 36.3 C L 68 20 145/83 H 94 Nasal Cannula 2 01/12/22 03:22 36.5 C 76 20 123/81 91 Nasal Cannula 3 Diagnostic Findings Laboratory Results WBC 8.91 K/ul (4.8-10.8) 01/12/22 07:13 RBC 4.49 M/uL (4.63-6.08) L 01/12/22 07:13 Hgb 12.8 g/dl (14.0-18.0) L 01/12/22 07:13 Hct 38.4 % (40.1-51.0) L 01/12/22 07:13 MCV 85.5 fL (80.0-100.0) 01/12/22 07:13 MCH 28.5 pg (25.0-34.0) 01/12/22 07:13 MCHC 33.3 g/dL (32.0-36.0) 01/12/22 07:13 RDW Std Deviation 43.8 fL (36.4-46.3) 01/12/22 07:13 RDW Coeff of [place] 14.0 % (11.5-14.5) 01/12/22 07:13 Plt Count 313 K/uL (130-400) 01/12/22 07:13 MPV 11.7 fL (9.4-12.4) 01/12/22 07:13 Immature Gran % (Auto) 1.0 % 01/12/22 07:13 Neut % (Auto) 75.5 % 01/12/22 07:13 Lymph % (Auto) 13.7 % 01/12/22 07:13 Reeves % (Auto) 9.2 % 01/12/22 07:13 Eos % (Auto) 0.4 % 01/12/22 07:13 Baso % (Auto) 0.2 % 01/12/22 07:13 Reticulocyte % (Auto) 1.0 % (0.5-2.0) 01/08/22 23:50 Neut # (Auto) 6.72 K/uL (1.4-6.5) H 01/12/22 07:13 Lymph # (Auto) 1.22 K/uL (1.2-3.4) 01/12/22 07:13 Reeves # (Auto) 0.82 K/uL (0.24-0.82) 01/12/22 07:13 Eos # (Auto) 0.04 K/uL (0-0.50) 01/12/22 07:13 Baso # (Auto) 0.02 K/uL (0-0.2) 01/12/22 07:13 Reticulocyte # 0.04 10^6/uL (0.02-0.10) 01/08/22 23:50 Immature Gran # (Auto) 0.09 K/uL (0.00-0.02) H 01/12/22 07:13 Dohle Bodies 1+ 01/08/22 20:40 Echinocytes 2+ 01/09/22 05:58 APTT 27.5 Seconds (21.0-31.0) 01/08/22 20:40 PTT Ratio 1.0 01/08/22 20:40 POC pH 7.39 (7.35-7.45) 01/09/22 00:16 POC pCO2 37 mmHg (35-46) 01/09/22 00:16 POC pO2 113 mmHg (80-95) H 01/09/22 00:16 POC HCO3 22 kim/L (19-24) 01/09/22 00:16 POC Total CO2 23 mmol/L (24-31) L 01/09/22 00:16 POC Base Excess -3.0 kim/L (-9-1.8) 01/09/22 00:16 ABG pH 7.41 (7.35-7.45) 01/09/22 01:09 ABG pCO2 36 mmHg (35-46) 01/09/22 01:09 ABG pO2 93 mmHg (80-95) 01/09/22 01:09 ABG HCO3 23 mmol/L (19-24) 01/09/22 01:09 POC ABG O2 Sat 98.0 % (90-95) H 01/09/22 00:16 ABG O2 Saturation 99.2 % (90-95) H 01/09/22 01:09 ABG Base Excess -1.4 mEq/L (-9-1.8) 01/09/22 01:09 Azeem Test Pos (Pos) 01/09/22 01:09 Oxygen Given 40% 01/09/22 01:09 Sodium 142 mmol/L (136-145) 01/11/22 07:21 Potassium 3.7 mmol/L (3.5-5.1) 01/11/22 07:21 Chloride 107 mmol/L (98-107) 01/11/22 07:21 Carbon Dioxide 29 mmol/L (21-32) 01/11/22 07:21 Anion Gap 6 (3-11) 01/11/22 07:21 BUN 41 mg/dl (6-23) H 01/11/22 07:21 Creatinine 1.00 mg/dl (0.6-1.4) 01/11/22 07:21 Est Cr Clr Drug Dosing 48.5 ml/min 01/11/22 07:21 Est GFR ( Amer) 77.0 ml/min 01/11/22 07:21 Est GFR (Non-Af Amer) 66.4 ml/min 01/11/22 07:21 BUN/Creatinine Ratio 41.0 (10-20) H 01/11/22 07:21 Glucose 57 mg/dl (70-99(Fasting)) L 01/11/22 07:21 POC Glucose 106 mg/dl (70-99) H 01/12/22 12:27 Estimat Average Glucose 217 mg/dl 01/09/22 05:58 Hemoglobin A1c 9.2 % (4.5-5.6) H 01/09/22 05:58 Osmolality 286 mOsm/kg (280-300) 01/08/22 20:40 Lactate 1.4 mmol/L (0.4-2.0) 01/08/22 23:50 Calcium 8.8 mg/dl (8.5-10.1) 01/11/22 07:21 Phosphorus 3.2 mg/dl (2.5-4.9) 01/11/22 07:21 Magnesium 2.1 mg/dl (1.7-2.4) 01/11/22 07:21 Iron < 10 mcg/dl (35-175) L 01/08/22 23:50 Transferrin 193 mg/dl (200-360) L 01/08/22 23:50 Ferritin 300.4 ng/ml (8-388) 01/08/22 23:50 Total Bilirubin 0.3 mg/dl (0.2-1.0) 01/11/22 07:21 AST 21 U/L (13-39) 01/11/22 07:21 ALT 30 U/L (7-52) 01/11/22 07:21 Alkaline Phosphatase 53 U/L (34-104) 01/11/22 07:21 Troponin I High Sens 321.3 pg/ml (0-20) H* D 01/09/22 05:58 Troponin I High Sens Cancelled 01/09/22 05:58 B-Natriuretic Peptide 1609 pg/ml (0-100) H 01/08/22 20:40 Total Protein 5.8 gm/dl (6.0-8.3) L 01/11/22 07:21 Albumin 2.9 gm/dl (3.4-5.0) L 01/11/22 07:21 Globulin 2.9 gm/dl (2.5-4.0) 01/11/22 07:21 Albumin/Globulin Ratio 1.0 (0.9-2) 01/11/22 07:21 Lipase 18 U/L (11-82) 01/08/22 20:40 Vitamin B12 > 1500 pg/ml (180-914) H 01/08/22 20:40 Folate > 22.30 ng/ml (>5.38) 01/08/22 20:40 Procalcitonin 9.38 ng/ml (0-0.5) H 01/08/22 20:40 TSH 1.450 uIu/ml (0.300-4.500) 01/08/22 20:40 Urine Color Yellow 01/09/22 19:48 Urine Appearance Clear (Clear) 01/09/22 19:48 Urine pH 5.0 (4.5-7.5) 01/09/22 19:48 Ur Specific [place] 1.016 (1.000-1.030) 01/09/22 19:48 Urine Protein Trace (Negative) H 01/09/22 19:48 Urine Glucose (UA) 1+ (Negative) H 01/09/22 19:48 Urine Ketones Negative (Negative) 01/09/22 19:48 Urine Blood Negative (Negative) 01/09/22 19:48 Urine Nitrite Negative (Negative) 01/09/22 19:48 Urine Bilirubin Negative (Negative) 01/09/22 19:48 Urine Urobilinogen Negative (Negative) 01/09/22 19:48 Ur Leukocyte Esterase Negative (Negative) 01/09/22 19:48 Urine WBC (Auto) 1-5 /hpf (0-5) 01/09/22 19:48 Urine RBC (Auto) 0-4 /hpf (0-4) 01/09/22 19:48 U Hyaline Cast (Auto) 10-30 /lpf (0-5) H 01/09/22 19:48 U Epithel Cells (Auto) 20-30 /lpf (0-5) H 01/09/22 19:48 Urine Bacteria (Auto) Negative (Negative) 01/09/22 19:48 Granular Casts 1-5 /lpf (0) H 01/09/22 19:48 Urine Osmolality 452 mOsm/kg (500-800) L 01/09/22 19:48 Ur Random Sodium 24 mmol/L 01/09/22 19:48 SARS-CoV-2, RNA, NAAT POSITIVE (NEGATIVE) A* 01/08/22 21:30 Blood Type A Positive 01/08/22 23:50 Antibody Screen NEGATIVE 01/08/22 23:50 Impressions Chest X-Ray 01/08/22 21:26 XR chest 1V portable HISTORY: 89 years-old Male Chest Pain . Acute chest pain COMPARISON: Chest radiograph 08/09/2021 TECHNIQUE: AP view of the chest FINDINGS: Cardiac silhouette is enlarged. Atherosclerosis of the thoracic aorta. Left subclavian pacer/AICD. Mild right hemidiaphragmatic elevation. Pulmonary vascular congestion with interstitial coarsening. Unchanged right hemidiaphragmatic elevation with subsegmental bibasilar densities. No pneumothorax. Cholecystectomy. Degenerative changes of the shoulders and spine. IMPRESSION: 1. Cardiomegaly with pulmonary vascular congestion and probable mild pulmonary edema. 2. Mild subsegmental bibasilar atelectasis versus scarring. ACT 112: Negative or not required by law. The above report was generated using voice recognition software. It may contain grammatical, syntax or spelling errors. Electronically signed by: Heri Diez M.D. 01/09/2022 9:02 AM Medications Administered Current Inpatient Medications Acetaminophen (Acetaminophen 325 Mg Tab) 650 mg PO Q4H PRN PRN Reason: Pain or Fever Stop: 02/08/22 02:42 Apixaban (Apixaban 5 Mg Tablet) 5 mg PO BID CHRIS Stop: 02/08/22 02:42 Last Admin: 01/12/22 08:33 Dose: 5 mg Clopidogrel Bisulfate (Clopidogrel Bisulfate 75 Mg Tab) 75 mg PO QAM CHRIS Stop: 02/08/22 08:59 Last Admin: 01/12/22 08:32 Dose: 75 mg Dexamethasone (Dexamethasone 4 Mg Tab) 6 mg PO DAILY CHRIS Stop: 01/18/22 08:59 Last Admin: 01/12/22 12:28 Dose: 6 mg Dextrose (Dextrose 50% 50 Ml Syringe) 25 - 50 ml IV UD PRN; Protocol PRN Reason: Hypoglycemia Protocol Stop: 02/08/22 00:22 Dofetilide (Dofetilide 125 Mcg Capsule) 500 mcg PO Q12H CHRIS Stop: 02/08/22 08:59 Last Admin: 01/12/22 08:33 Dose: 500 mcg Enalapril Maleate (Enalapril Maleate 10 Mg Tab) 40 mg PO QAM CHRIS Stop: 02/08/22 08:59 Last Admin: 01/12/22 08:33 Dose: 40 mg Fluticasone/Vilanterol (Fluticasone/Vilanterol 100/25mcg 14 Puffs/Inhaler) 1 puffs INH QAM CHRIS Stop: 02/08/22 08:59 Last Admin: 01/12/22 08:34 Dose: 1 puffs Furosemide (Furosemide 40 Mg Tab) 40 mg PO BID CHRIS Stop: 02/09/22 08:59 Last Admin: 01/12/22 08:34 Dose: 40 mg Gabapentin (Gabapentin 300 Mg Cap) 600 mg PO HS CHRIS Stop: 02/08/22 20:59 Last Admin: 01/11/22 22:29 Dose: 600 mg Gabapentin (Gabapentin 300 Mg Cap) 300 mg PO BID@0900,1400 CHRIS Stop: 02/08/22 08:59 Last Admin: 01/12/22 08:33 Dose: 300 mg Glucagon (Glucagon For Inj 1 Mg Vial) 1 mg SQ UD PRN; Protocol PRN Reason: Hypoglycemia Protocol Stop: 02/08/22 00:22 Glucose (Glucose 40% Gel 15 Gm Tube) 15 - 30 gm PO UD PRN; Protocol PRN Reason: Hypoglycemia Protocol Stop: 02/08/22 00:22 Glucose (Glucose 10 Tab/Tube) 4 - 8 tab PO UD PRN; Protocol PRN Reason: Hypoglycemia Treatment Stop: 02/08/22 00:22 Remdesivir 100 mg/ Sodium (Chloride) 250 mls @ 250 mls/hr IV Q24H CHRIS Stop: 01/12/22 20:59 Last Infusion: 01/12/22 00:05 Dose: Infused Promethazine HCl 6.25 mg/ (Sodium Chloride) 50.25 mls @ 201 mls/hr IV Q6H PRN PRN Reason: Nausea And Vomiting Stop: 02/08/22 02:42 Insulin Aspart (Insulin Aspart Per Unit) 0 units SC ACHS CHRIS Stop: 02/08/22 00:24 Last Admin: 01/12/22 08:47 Dose: 8 units Levalbuterol HCl (Levalbuterol Hcl 1.25 Mg/3 Ml Neb) 1.25 mg INH QIDR PRN; Protocol PRN Reason: Wheezing Stop: 02/10/22 10:34 Metoprolol Succinate (Metoprolol Succ 25mg Ext Rel Tab) 12.5 mg PO BID CHRIS Stop: 02/08/22 08:59 Last Admin: 01/12/22 08:32 Dose: 12.5 mg Miscellaneous (Carbohydrates For Hypoglycemia ) 15 - 30 gm PO UD PRN PRN Reason: Hypoglycemia Protocol Stop: 02/08/22 00:22 Miscellaneous Information (Pharmacy Glycemic Mgmt Consult) 1 each N/A UD PRN; Protocol PRN Reason: Consult Stop: 02/08/22 07:24 Multivitamins/Minerals (Cerovite Adv Formula Tab) 1 tab PO DAILY@1400 CHRIS Stop: 02/08/22 13:59 Last Admin: 01/11/22 12:51 Dose: 1 tab
[2022-01-12] MEDS: CEROVITE ADV FORMULA TAB PO SCH (12:58)
[2022-01-12] MEDS: REMDESIVIR 100 MG in SODIUM CHLORIDE 0.9% 230 ML IV SCH (20:42)
[2022-01-13] MEDS: INSULIN ASPART PER UNIT SC SCH (08:01)
[2022-01-13] MEDS: APIXABAN 5 MG TABLET PO SCH (08:09)
[2022-01-13] MEDS: METOPROLOL SUCC 25MG EXT REL TAB PO SCH (08:10)
[2022-01-13] MEDS: CLOPIDOGREL BISULFATE 75 MG TAB PO SCH (08:10)
[2022-01-13] MEDS: GABAPENTIN 300 MG CAP PO SCH (08:10)
[2022-01-13] MEDS: ENALAPRIL MALEATE 10 MG TAB PO SCH (08:10)
[2022-01-13] MEDS: FUROSEMIDE 40 MG TAB PO SCH (08:11)
[2022-01-13] MEDS: dexAMETHasone 4 MG TAB PO SCH (08:11)
[2022-01-13] MEDS: FLUTICASONE/VILANTEROL 100/25MCG 14 PUFFS/INHALER INH SCH (08:11)
[2022-01-13] MEDS: DOFETILIDE 125 MCG CAPSULE PO SCH (08:11)
[2022-01-13 08:12] LABS: Albumin Globulin Ratio 1.2 (0.9-2); Albumin Level 3.4 gm/dl (3.4-5.0); BUN Creatinine Ratio 36.3 (10-20); Bilirubin,Total 0.4 mg/dl (0.2-1.0); Calcium 8.8 mg/dl (8.5-10.1); Creatinine Clr Calc Pharmacy 42.2 ml/min; Est GFR (African American) 66.4 ml/min; Est GFR (Non-African American) 57.3 ml/min; Globulin 2.9 gm/dl (2.5-4.0); Magnesium 2.1 mg/dl (1.7-2.4); Phosphorus 3.4 mg/dl (2.5-4.9); Potassium 4.3 mmol/L (3.5-5.1); Total Protein 6.3 gm/dl (6.0-8.3)
--- NOTE | 2022-01-13 11:49 | Discharge Summary ---
Date of Service January 13, 2022 Admission HPI Per Admitting Provider History obtained from patient and records. Medical history significant for chronic systolic heart failure (EF 30 to 34%, TTE 2020 status post ICD), CAD status post angioplasty, chronic LBBB, A. fib status post PPM on Eliquis, mild mitral regurgitation, pulmonary hypertension, hypertension, DM2 on oral medications, prostate cancer status post surgery, peripheral neuropathy, past tobacco abuse. Last week, patient noted fever chills, nasal drainage. Cold symptoms with congestion. Junky cough symptoms. No chest pain. Poor appetite. Patient completed COVID-19 vaccination. Patient seen at PCPs office 4 days ago. Chest x-ray showed right atelectasis. COVID-19 swab was positive. Patient prescribed Z-Charles. Worsening shortness of breath mostly on exertion and weakness at home. O2 sats 89 on room air upon EMS arrival. Patient denies chest pain or unusual fluid retention/leg swelling. Patient brought to the ER. Decadron and neb treatment administered at the ER. BiPAP later initiated. Medical History as above Surgical History : ICD, PPM Family History : COPD Personal/Social history : Past tobacco abuse, no EtOH intake, Principal Diagnosis COVID19 Pneumonia Discharge Data Allergies Allergy/AdvReac Type Severity Reaction Status Date / Time benoxinate Allergy Unknown listed in Verified 01/08/22 22:23 [facility] simvastatin Allergy Unknown listed in Verified 01/08/22 22:23 [facility] Consultations 01/08/22 22:54 ED Decision to Admit Stat Diabetes Follow up Diabetes Follow-up Needed for HgbA1c >9% Hospital Course (1) Acute respiratory failure with hypoxia: - likely due to COVID19 pneumonia - no history of pulmonary disease - CXR with atelectasis - O2 supplementation as needed - s/p remdesivir. Will stop dexamethasone now that patient is no longer requiring oxygen - Resolved - on RA, 2-step negative for home oxygen - discharge home without oxygen (2) Pneumonia due to COVID-19 virus: - see above (3) CAD (coronary artery disease): - no chest pain - continue plavix, statin, apixaban - continue BB (4) Chronic heart failure with reduced ejection fraction and diastolic dysfunction: - not in exacerbation - continue BB, ACEi - continue lasix PO BID (5) PAF (paroxysmal atrial fibrillation): - continue BB and Apixaban (6) HTN (hypertension): - continue home meds as above Plan - discharge to home Total Time Total Time Spent Total Time Spent (In Minutes): 18 Total Time Includes: Examination of the Patient, Discharge Planning and Medication Reconciliation Discharge Plan Discharge Items Patient Disposition: Home - Self-Care Reason For Visit: RESP FAILURE, COVID Discharge Diagnosis: COVID19 Pneumonia Activity: Resume your previous activity Non-emergency contact: Primary Care Provider Call non-emergency contact if: your symptoms worsen Follow-up/Referrals: Denton Sears MD [Primary Care Provider] - Diet: Carb Consistent or DM2 and Heart Healthy Addtl Attending Provider Instructions: You were admitted with COVI19 pneumonia requiring oxygen support. You were given COVID treatments with a steroid, dexamethasone, and an antiviral, Remdesivir. You had improvement i your symptoms and oxygenation and did not require oxygenation prior to discharge. You worked with physical therapy and respiratory therapy to assess your mobility and oxygen with activity and you were ok to go home without any oxygen. Pending Studies at Discharge: No Stand-Alone Forms: My [facility], Smoking Cessation Medications and DC Order Prescriptions: Continued metformin 500 mg tablet extended release 24 hr 1,000 mg PO BID gabapentin 300 mg capsule 600 mg PO HS gabapentin 300 mg capsule 300 mg PO BID albuterol sulfate 90 mcg/actuation HFA aerosol inhaler 2 puff INHALATION Q6 PRN (Reason: Shortness Of Breath Or Wheezing) metoprolol succinate 25 mg tablet extended release 24 hr 12.5 mg PO AMHS nitroglycerin 0.4 mg tablet, sublingual 0.4 mg sublingual UD PRN (Reason: Chest Pain) B-Complex With B-12 2.5 mg-2.5 mg- 5 mg-100 mcg Tablet 1 tab PO DAILY [id number] C-Mn 500-400 mg Capsule 1 cap PO BID magnesium oxide 400 mg magnesium Tablet 400 mg PO DAILY vitamins A,C,P-jpca-qoxugh [id number] ahiv-cd-zhid Capsule 1 cap PO DAILY Multiple Vitamin-Minerals Tablet 1 tab PO DAILY furosemide 40 mg Tablet 40 mg PO BID Rx Instructions: may take an additional tablet in the afternoon as needed clopidogrel [Plavix] 75 mg Tablet 75 mg PO QAM calcium carbonate 500 mg calcium (1,250 mg) Tablet 500 mg PO QAM glimepiride 4 mg Tablet 4 mg PO BID benazepril 40 mg Tablet 40 mg PO QAM diphenhydramine-acetaminophen [Tylenol PM Extra Strength] 25-500 mg Tablet 1 tab PO TID PRN (Reason: Itching) dofetilide [Tikosyn] 500 mcg Capsule 500 mcg PO Q12H Eliquis 5 mg Tablet 5 mg PO BID fluticasone furoate-vilanterol [Breo Ellipta] 100-25 mcg/dose Blister With Device 2 inh INHALATION QAM Discontinued azithromycin 250 mg tablet 250 mg PO UD Discharge Orders: Discharge Order (Routine); Ordered 01/13/22 Ordered By: Gee Diallo/Other Patient Handouts: Managing Type 2 Diabetes Admission Data Admit Date/Time: 01/09/22 00:30 Attending Provider: Gee Ortega Admit Provider: Darwin Stanford Primary Care Provider: Denton Sears Other Providers: Darwin Stanford Other Interventions: Discharge Summary Assessment (RN) Last Done: 01/13/22 10:31
--- NOTE | 2022-01-22 08:59 | Coding Query ---
SEPSIS To promote full compliance with coding requirements relating to patient care, physician participation is requested in all cases of remote inpatient coder uncertainty. Please assist us with the question(s) below: In responding to this query, please exercise your independent professional judgement. The fact that a question is asked does not imply that any particular answer is desired or expected. We appreciate your clarification on this issue. The medical record reflects the following clinical findings: Pt admitted with Covid Pneumonia. H/P documented possible Sepsis and abnormal Procalcitonin. Seeking to clarify if Pt was treated for Sepsis during this Inpatient Stay. Please check below the appropriate phrase. Thanks for your help. CAROLYN Cabrera CCS ____ ( )Bacteremia (Nonspecific laboratory finding of bacteria in the blood) Specify Organism ( ) Present on Admission ( ) Not present on admission ( ) Unable to clinically determine ( ) Septicemia (Systemic disease associated with the presence of pathogenic microorganisms in the blood): Specify Organism () Present on Admission () Not present on admission () Unable to clinically determine (x ) Sepsis Specify Organism - due to COVID Specify Associated Condition/Diagnosis (x ) Present on Admission ( ) Not present on admission ( ) Unable to clinically determine ( ) Severe Sepsis (Sepsis associated with acute organ dysfunction) Specify Organism Specify Associated Condition/Diagnosis ( ) Present on Admission ( ) Not present on admission ( ) Unable to clinically determine ( ) Septic Shock (Severe sepsis with acute circulatory failure, unexplained by other causes) ( ) Present on Admission ( ) Not present on admission ( ) Unable to clinically determine ( ) Other, patient has: MTDD
== END 2022-01-13 12:18 | disposition home or self-care (01) | DRG 871 ==
LOC: ED 20:23 → EDINP 01-09 00:30 → SUATTDRO 01-09 00:30 → 2S 01-09 21:05